=== PATIENT | female | born 1965 | race Caucasian/White ===

== ENCOUNTER 2024-04-03 11:17 | Inpatient (IN) | payer OTHER, SELFPAY ==
[2024-04-03] VITALS (17 sets, daily range): BP systolic 87–134; BP diastolic 35–106; BMI 26.2
[2024-04-03] MEDS: NSS 1000 IV ×2 (03:50→08:57)
--- NOTE | 2024-04-03 06:33 | EDRN ---
Patient provided with a drink of water otherwise resting comfortably
--- NOTE | 2024-04-03 07:43 | ED.GENMED ---
History of Present Illness
<Sarahi Wall PA-C - Last Filed: 04/03/24 12:11>
General
Chief Complaint: Alcohol Problem
Source: patient
Exam Limitations: none
Time Seen by Provider: 04/03/24 07:26
History of Present Illness
History of Present Illness:
58yoF with a history of alcohol abuse presenting via EMS for evaluation of an 'alcohol overdose.' Patient reports that she did not eat yesterday and drank alcohol at nighttime. She reports drinking a fifth of tequila. Her reportedly found
her on the floor. Patient is not sure how she got on the floor and is not sure if she fell. was unable to arouse patient so EMS was called. Patient states she feels terrible. She tried to ambulate to the bathroom earlier but was unable
to due to feeling extremely weak. She also feels short of breath which started a few hours ago. She was sober for 20+ years and started to drink heavily again about 6 months ago. On average, she is drinking a pint of tequila daily. She has
symptoms of withdrawal in the morning including vomiting and feeling shaky. She is interested in quitting but states she is the breadwinner in her family and her is currently on disability. She was admitted at [facility] in September 2023 after
a similar presentation.
Phy Exam
<Sarahi Wall PA-C - Last Filed: 04/03/24 12:11>
General Physical Exam
General Presentation: moderate distress
General age: appears older than age
General Skin: warm and dry
General Habitus: normal
General Mental: alert
General Hydration: dry mucous membranes
ENT Exam
ENT Exam: normocephalic
Eye Exam
Eye Exam: PERRL
Cardiovascular Exam
Cardiovascular Exam: regular rate/rhythm
Pulmonary Exam
Pulmonary Exam: lungs clear, no rales, no rhonchi, no wheezing and other (Tachypnea noted. Lungs CTA and oxygen saturation 100%.)
Gastrointestinal Exam
Gastrointestinal Exam: non tender, soft and non distended
Neurological Exam
Neurological Exam: alert
Arnold Coma Scale
Eye Opening: Spontaneous
Verbal Response: Oriented
Motor Response: Obeys Commands
GCS Total Score: 15
Skin Exam
Skin Exam: normal color and warm/dry
Psychiatric Exam
Psychiatric Exam: normal mood/affect
<Foreign Quintero, - Last Filed: 04/03/24 13:16>
Arnold Coma Scale
GCS Total Score: 15
Scores
<Sarahi Wall PA-C - Last Filed: 04/03/24 12:11>
Withdrawal Assessment of Alcohol
Withdrawal Assessment Completed?: Not applicable
Course
<Sarahi Wall PA-C - Last Filed: 04/03/24 12:11>
Orders/Labs/Results
Orders:
Orders
04/03/24 03:50
0.9% Sodium Chloride 1000 ml [Nss] 1,000 ml IV BOLUS
04/03/24 07:41
Electrocardiogram (*1) Urgent
Reason for Study: Shortness of Breath
EKG- Treatment ONCE
04/03/24 07:42
CT Cervical Spine W/o Iv Contr Urgent
Comment:
Reason For Exam: possible fall, ETOH
CT Head W/o Iv Contrast Urgent
Comment:
Reason For Exam: possible fall, ETOH
Lorazepam [Ativan] 1 mg IV NOW STA
04/03/24 07:43
Cardiac Monitoring- Treatment ONCE
0.9% Sodium Chloride 1000 ml [Nss] 1,000 ml IV BOLUS
CR Chest - 2 Views Urgent
Comment:
Reason For Exam: SOB
04/03/24 07:50
Alcohol Urgent
Complete Blood Count/With Diff Urgent
Comprehensive Metabolic Panel Urgent
Magnesium Urgent
Phosphorus Urgent
Troponin I Urgent
Venous Blood Gas Urgent
%Oxygen/Room Air: room air
04/03/24 08:31
Sodium Bicarbonate 50 meq IV NOW STA
04/03/24 09:00
Urinalysis Reflex To Culture Urgent
Date Specimen was Collected: 04/03/24
Time Specimen was Collected: 09:03
04/03/24 09:02
Add On- LAB Urgent
Tests Added?: phophorus
04/03/24 09:59
B-Hydroxybutyrate Urgent
04/03/24 Lunch
Regular
Dextrose 5%/0.9%Sodchl 1000 ml [D5/0.9% Sodium Chloride] 1,000 ml IV 150 mls/hr
Thiamine Injection 500 mg 0.9% Sodium Chloride 250 ml [Nss] 250 ml IV ONCE
04/03/24 10:49
Admit/Transfer Patient As Directed
Co-Sign Provider:
Level of Care: Inpatient admission
Assign to:: IMU- Intermediate Care
Physician / Group: Dav Lynne
Diagnosis: Alcohol intoxication,sev Ketoacidosis
Reason for Hospitalization: Alcohol intoxication, sev Ketoacidosis, found down on floor
Expected length of stay greater than two midnights?: Yes
ELOS- Estimated Length of Stay in days: 3
I certify the patient meets the requirements for IP care: Yes
04/03/24 10:58
PRN Pain Medication Management As Directed
May give lesser potent ordered pain med per pt: Yes
preference::
Protocol:: Medication orders for pain may be administered in a
manner that supports deferring to patient preference
when the pt is:
- Requesting an ordered lesser potent pain medication.
Least to most potent pain medications are defined
as: acetaminophen < NSAID < tramadol < opioids
(morphine, oxycodone, hydromorphone).
- Requesting a lesser dose of the same medication IF
ORDERED.
- Requesting a less intrusive route of administration
if both routes are prescribed by the provider (PO <
IV).
04/03/24 11:00
Code Status As Directed
Resuscitation Status: Full Code
04/03/24 12:04
0.9% Sodium Chloride [Nss (Preservative Free)] See Protocol IV PRN PRN
Acetaminophen [Tylenol] 650 mg PO Q4HPRN PRN
Bisacodyl [Dulcolax] 10 mg RECTAL [id number] PRN
Docusate W/Senna [Senokot-S] 1 tablet PO BIDPRN PRN
Estradiol [Estrace] 1 mg PO DAILY
Lorazepam [Ativan] 1 mg IV Q1HPRN PRN
Lorazepam [Ativan] 1 mg PO Q2HPRN PRN
Lorazepam [Ativan] 2 mg IV Q1HPRN PRN
Medroxyprogesterone [Provera] 2.5 mg PO DAILY
Ondansetron Injectable [Zofran] 4 mg IV Q6HPRN PRN
Polyethylene Glycol Powder [Miralax] 17 grams PO DAILYPRN PRN
Sodium Bicarbonate 650 mg PO NOW STA
04/03/24 12:04
Case Management Consult Once
Case Management Consult: Other
Comment: Substance abuse counseling
Activity As Directed
Activity Level: With Assistance
MSAS SCORE As Directed
MSAS Score 0-4: Repeat MSAS every 2 hours until 0-4 for three consecutive assessments, then every 4 hours x 48
hours.
MSAS Score 5-7: For MILD withdrawl symptoms. Repeat MSAS and RASS every 2 hours
MSAS Score 8-11: For MODERATE withdrawal symptoms. Repeat MSAS and RASS every 1 hour. Consider ICU or IMU
level of care.
MSAS Score > 11: For SEVERE withdrawal symptoms. Repeat MSAS and RASS every 1 hour. Notify provider, consider
ICU level of care.
MSAS Additional Instructions: If no improvement or no decrease in score from severe to moderate within 12
hours, consult psychiatry
MSAS Notify Provider: Notify provider if patient requires more than 10 mg of Lorazepam in eight hour period.
Vital Signs As Directed
Frequency: Per unit guidelines
Ot Eval And Treat Routine
US Abdomen Complete/Upper Routine
Comment:
Reason For Exam: Liver and GB
DX Deep Vein Thrombosis Video Routine
04/03/24 16:00
Sodium Bicarbonate 650 mg PO TID
Thiamine Injection 200 mg IV Q8
04/03/24 18:00
Enoxaparin Sodium [Lovenox] 40 mg SC QPM
04/04/24 06:00
Complete Blood Count/With Diff IN AM
Comprehensive Metabolic Panel IN AM
Creatine Phosphokinase IN AM
Vitamin B12 IN AM
Pt Eval And Treat IN AM
Activity Level: With Assistance
04/04/24 08:00
FOLic ACID [Folvite] 1 mg PO DAILY
FOLic ACID [Folvite] 1 mg 0.9% Sodium Chloride 50 ml [Nss] 50 ml IV DAILYPRN
04/05/24 06:00
Complete Blood Count/With Diff IN AM
Comprehensive Metabolic Panel IN AM
04/06/24 20:00
Thiamine HCl [Vitamin B1] 100 mg PO BID
Abnormal Lab Results
04/03/24 04/03/24
07:50 09:59
RBC 3.05 L 10^6/uL
(4.20-5.40)
Hct 36.7 L %
(37.0-47.0)
MCV 120.3 H fL
(81.0-99.0)
MCH 39.3 H pg
(27.0-31.0)
MCHC 32.7 L g/dL
(33.0-37.0)
RDW 17.0 H %
(11.5-14.5)
Plt Count 115 L 10^3/uL
(130-400)
MPV 10.7 H fL
(7.4-10.4)
Abs Immat Gran (auto) 0.1 H 10^3/uL
(0-0.05)
Absolute Lymphs (auto) 0.3 L 10^3/uL
(1.2-3.4)
Immature Gran % 1.9 H %
(0-0.5)
Neutrophils % 86.1 H %
(42.2-75.2)
Lymphocytes % 4.4 L %
(20.5-51.1)
VBG pH 6.98 L*
(7.32-7.43)
VBG pCO2 20 L mmHg
(35-48)
VBG HCO3 4.7 L mmol/L
(22-27)
Carbon Dioxide < 5 L* mmol/L
(22-30)
Creatinine 1.4 H mg/dL
(0.6-1.0)
Calcium 8.0 L mg/dl
(8.4-10.2)
Magnesium 2.5 H mg/dl
(1.6-2.3)
AST 100 H U/L
(14-36)
ALT 41 H U/L
(0-35)
B-Hydroxybutyrate > 9.0 H mmol/L
(0.02-0.27)
04/03/24 07:50
04/03/24 07:50
Vital Signs
Initial and Last Documented VS:
Initial Vital Signs
Temp Pulse Resp BP Pulse Ox
98.0 F 97 27 107/71 100
04/03/24 03:40 04/03/24 03:40 04/03/24 03:40 04/03/24 03:40 04/03/24 03:40
Last Documented Vital Signs
Temp Pulse Resp BP Pulse Ox
98.0 F 109 26 99/54 100
04/03/24 03:40 04/03/24 11:15 04/03/24 11:15 04/03/24 11:14 04/03/24 11:15
<Foreign Quintero, DO - Last Filed: 04/03/24 13:16>
Orders/Labs/Results
Orders:
Orders
04/03/24 03:50
0.9% Sodium Chloride 1000 ml [Nss] 1,000 ml IV BOLUS
04/03/24 07:41
Electrocardiogram (*1) Urgent
Reason for Study: Shortness of Breath
EKG- Treatment ONCE
04/03/24 07:42
CT Cervical Spine W/o Iv Contr Urgent
Comment:
Reason For Exam: possible fall, ETOH
CT Head W/o Iv Contrast Urgent
Comment:
Reason For Exam: possible fall, ETOH
Lorazepam [Ativan] 1 mg IV NOW STA
04/03/24 07:43
Cardiac Monitoring- Treatment ONCE
0.9% Sodium Chloride 1000 ml [Nss] 1,000 ml IV BOLUS
CR Chest - 2 Views Urgent
Comment:
Reason For Exam: SOB
04/03/24 07:50
Alcohol Urgent
Complete Blood Count/With Diff Urgent
Comprehensive Metabolic Panel Urgent
Magnesium Urgent
Phosphorus Urgent
Troponin I Urgent
Venous Blood Gas Urgent
%Oxygen/Room Air: room air
04/03/24 08:31
Sodium Bicarbonate 50 meq IV NOW STA
04/03/24 09:00
Urinalysis Reflex To Culture Urgent
Date Specimen was Collected: 04/03/24
Time Specimen was Collected: 09:03
04/03/24 09:02
Add On- LAB Urgent
Tests Added?: phophorus
04/03/24 09:59
B-Hydroxybutyrate Urgent
04/03/24 Lunch
Regular
Dextrose 5%/0.9%Sodchl 1000 ml [D5/0.9% Sodium Chloride] 1,000 ml IV 150 mls/hr
Thiamine Injection 500 mg 0.9% Sodium Chloride 250 ml [Nss] 250 ml IV ONCE
04/03/24 10:49
Admit/Transfer Patient As Directed
Co-Sign Provider:
Level of Care: Inpatient admission
Assign to:: IMU- Intermediate Care
Physician / Group: Dav Lynne
Diagnosis: Alcohol intoxication,sev Ketoacidosis
Reason for Hospitalization: Alcohol intoxication, sev Ketoacidosis, found down on floor
Expected length of stay greater than two midnights?: Yes
ELOS- Estimated Length of Stay in days: 3
I certify the patient meets the requirements for IP care: Yes
04/03/24 10:58
PRN Pain Medication Management As Directed
May give lesser potent ordered pain med per pt: Yes
preference::
Protocol:: Medication orders for pain may be administered in a
manner that supports deferring to patient preference
when the pt is:
- Requesting an ordered lesser potent pain medication.
Least to most potent pain medications are defined
as: acetaminophen < NSAID < tramadol < opioids
(morphine, oxycodone, hydromorphone).
- Requesting a lesser dose of the same medication IF
ORDERED.
- Requesting a less intrusive route of administration
if both routes are prescribed by the provider (PO <
IV).
04/03/24 11:00
Code Status As Directed
Resuscitation Status: Full Code
04/03/24 12:04
0.9% Sodium Chloride [Nss (Preservative Free)] See Protocol IV PRN PRN
Acetaminophen [Tylenol] 650 mg PO Q4HPRN PRN
Bisacodyl [Dulcolax] 10 mg RECTAL [id number] PRN
Docusate W/Senna [Senokot-S] 1 tablet PO BIDPRN PRN
Estradiol [Estrace] 1 mg PO DAILY
Lorazepam [Ativan] 1 mg IV Q1HPRN PRN
Lorazepam [Ativan] 1 mg PO Q2HPRN PRN
Lorazepam [Ativan] 2 mg IV Q1HPRN PRN
Medroxyprogesterone [Provera] 2.5 mg PO DAILY
Ondansetron Injectable [Zofran] 4 mg IV Q6HPRN PRN
Polyethylene Glycol Powder [Miralax] 17 grams PO DAILYPRN PRN
Sodium Bicarbonate 650 mg PO NOW STA
04/03/24 12:04
Case Management Consult Once
Case Management Consult: Other
Comment: Substance abuse counseling
Activity As Directed
Activity Level: With Assistance
MSAS SCORE As Directed
MSAS Score 0-4: Repeat MSAS every 2 hours until 0-4 for three consecutive assessments, then every 4 hours x 48
hours.
MSAS Score 5-7: For MILD withdrawl symptoms. Repeat MSAS and RASS every 2 hours
MSAS Score 8-11: For MODERATE withdrawal symptoms. Repeat MSAS and RASS every 1 hour. Consider ICU or IMU
level of care.
MSAS Score > 11: For SEVERE withdrawal symptoms. Repeat MSAS and RASS every 1 hour. Notify provider, consider
ICU level of care.
MSAS Additional Instructions: If no improvement or no decrease in score from severe to moderate within 12
hours, consult psychiatry
MSAS Notify Provider: Notify provider if patient requires more than 10 mg of Lorazepam in eight hour period.
Vital Signs As Directed
Frequency: Per unit guidelines
Ot Eval And Treat Routine
US Abdomen Complete/Upper Routine
Comment:
Reason For Exam: Liver and GB
DX Deep Vein Thrombosis Video Routine
04/03/24 16:00
Sodium Bicarbonate 650 mg PO TID
Thiamine Injection 200 mg IV Q8
04/03/24 18:00
Enoxaparin Sodium [Lovenox] 40 mg SC QPM
04/04/24 06:00
Complete Blood Count/With Diff IN AM
Comprehensive Metabolic Panel IN AM
Creatine Phosphokinase IN AM
Vitamin B12 IN AM
Pt Eval And Treat IN AM
Activity Level: With Assistance
04/04/24 08:00
FOLic ACID [Folvite] 1 mg PO DAILY
FOLic ACID [Folvite] 1 mg 0.9% Sodium Chloride 50 ml [Nss] 50 ml IV DAILYPRN
04/05/24 06:00
Complete Blood Count/With Diff IN AM
Comprehensive Metabolic Panel IN AM
04/06/24 20:00
Thiamine HCl [Vitamin B1] 100 mg PO BID
Abnormal Lab Results
04/03/24 04/03/24
07:50 09:59
RBC 3.05 L 10^6/uL
(4.20-5.40)
Hct 36.7 L %
(37.0-47.0)
MCV 120.3 H fL
(81.0-99.0)
MCH 39.3 H pg
(27.0-31.0)
MCHC 32.7 L g/dL
(33.0-37.0)
RDW 17.0 H %
(11.5-14.5)
Plt Count 115 L 10^3/uL
(130-400)
MPV 10.7 H fL
(7.4-10.4)
Abs Immat Gran (auto) 0.1 H 10^3/uL
(0-0.05)
Absolute Lymphs (auto) 0.3 L 10^3/uL
(1.2-3.4)
Immature Gran % 1.9 H %
(0-0.5)
Neutrophils % 86.1 H %
(42.2-75.2)
Lymphocytes % 4.4 L %
(20.5-51.1)
VBG pH 6.98 L*
(7.32-7.43)
VBG pCO2 20 L mmHg
(35-48)
VBG HCO3 4.7 L mmol/L
(22-27)
Carbon Dioxide < 5 L* mmol/L
(22-30)
Creatinine 1.4 H mg/dL
(0.6-1.0)
Calcium 8.0 L mg/dl
(8.4-10.2)
Magnesium 2.5 H mg/dl
(1.6-2.3)
AST 100 H U/L
(14-36)
ALT 41 H U/L
(0-35)
B-Hydroxybutyrate > 9.0 H mmol/L
(0.02-0.27)
04/03/24 07:50
04/03/24 07:50
Vital Signs
Initial and Last Documented VS:
Initial Vital Signs
Temp Pulse Resp BP Pulse Ox
98.0 F 97 27 107/71 100
04/03/24 03:40 04/03/24 03:40 04/03/24 03:40 04/03/24 03:40 04/03/24 03:40
Last Documented Vital Signs
Temp Pulse Resp BP Pulse Ox
98.0 F 109 26 99/54 100
04/03/24 03:40 04/03/24 11:15 04/03/24 11:15 04/03/24 11:14 04/03/24 11:15
Hermanlt;Sarahi Wall PA-C - Last Filed: 04/03/24 12:11>
MDM/Problems Addressed
Differential Diagnosis Includes:
58yoF here after an 'alcohol overdose.' found patient on floor this morning and she was unable to be aroused so EMS was called. Patient admits to not eating much the past few days. She is ill appearing and tachypneic on exam. RR 30, HR 113.
Remainder of vitals are stable. Differential diagnosis includes but is not limited to: alcohol intoxication, electrolyte abnormality, alcoholic ketoacidosis, starvation ketosis, dehydration
Initial ED plan: Check cardiac labs, magnesium, ETOH, VBG, EKG, CXR, and CT head/cervical spine. IV fluid bolus ordered prior to initial exam. Will order 2nd NS bolus and 1mg IV Ativan for withdrawal symptoms.
<Sarahi Wall PA-C - Last Filed: 04/03/24 12:11>
*EKG
Interpreted by ED Provider?: Yes
EKG Intrepretation Date: 04/03/24
Heart Rate: 60
Rate: normal
Rhythm: sinus
[place]: normal axis
Interval: long QT (519)
Ischemia: no ischemia
*Critical Care Note
Total Time (30-74mins, 75-104mins- exclusive of procedures): 35
<Foreign Quintero DO - Last Filed: 04/03/24 13:16>
*Critical Care Note
Total Time (30-74mins, 75-104mins- exclusive of procedures): 40
comment:
Critical care statement: A total of 40 minutes of critical care time was provided for this patient. This includes management of unstable vital signs, evaluation of the patient at bedside, reviewing the patient's pertinent medical records, discussion
with consultants, review of old EKGs and review of pertinent medical records. This time with separate from time utilized to perform the aforementioned documented procedures
<Sarahi Wall PA-C - Last Filed: 04/03/24 12:11>
Update Note
Update Note:
Severe metabolic acidosis noted with venous pH of 6.98 and bicarb less than 5. Glucose within normal limits. Suspect alcoholic ketoacidosis vs. starvation ketosis. Beta hydroxybutyrate added. IV thiamine ordered and patient was initiated on D5
normal saline maintenance fluids. Patient admitted for further management.
ED Attending Note
<Sarahi Wall PA-C - Last Filed: 04/03/24 12:11>
-
Portions of this chart may have been created with voice recognition software.� Occasional wrong word or��sound alike� substitutions may have occurred due to the inherent limitations of voice recognition software.
<Foreign Quintero DO - Last Filed: 04/03/24 13:16>
ED Attending Note
Patient seen and examined by attending physician: Yes
ED Attending Note:
I have reviewed and agree with history treatment plan by Sarahi Wall PA-C. My exam reveals 58-year-old female with mild tachypnea. Abdomen exam benign. Ecchymosis right infraorbital region. No tenderness to palpation. Extraocular motions
intact. Lungs clear. Suspect alcoholic ketoacidosis. IV fluids given. IV bicarbonate given. Will likely admit to ICU.
Discharge Plan
Departure
Patient Disposition: Admit
Date of Disposition: 04/03/24
Time of Disposition: 09:10
Presentation/result/management discussed w/ accepting MD/DO: Hospitalist
Discharge Problem:
High anion gap metabolic acidosis, Alcohol withdrawal
Interventions
Interventions:
*Risk Screen - Suicide Last Done: 04/03/24 03:40
*General Assessment Last Done: 04/03/24 03:40
*Neglect/Abuse Screening Last Done: 04/03/24 03:40
ED- Fall Risk Assessment Last Done: 04/03/24 06:34
*ED COVID-19 Vaccine History Last Done: 04/03/24 03:40
ED- Neurological Assessment Last Done: 04/03/24 06:34
ED-Psychological Assessment Last Done: 04/03/24 06:34
[2024-04-03] MEDS: ATIVAN 1 MG IV ×4 (07:58→16:55)
[2024-04-03 08:09] LABS: % Basophils 0.3 % (0-2); % Immature Granulocytes 1.9 % (0-0.5); % Lymphocytes 4.4 % (20.5-51.1); % Monocytes 7.3 % (1.7-9.3); % Neutrophils 86.1 % (42.2-75.2); Absolute Immature Granulocytes 0.1 10^3/uL (0-0.05); Absolute Lymphocytes 0.3 10^3/uL (1.2-3.4); Absolute Monocytes 0.5 10^3/uL (0.1-0.6); Hematocrit 36.7 % (37.0-47.0); Mean Corp Hgb Conc. 32.7 g/dL (33.0-37.0); Mean Corpuscular Hgb 39.3 pg (27.0-31.0); Mean Corpuscular Volume 120.3 fL (81.0-99.0); Mean Platelet Volume 10.7 fL (7.4-10.4); Nucleated Red Blood Cells % 2.1 %; Platelet Count 115 10^3/uL (130-400); Red Blood Cell Count 3.05 10^6/uL (4.20-5.40); Venous Blood Gas B.E. -25.5 mmol/L (-4 to +4); Venous Blood Gas HCO3 4.7 mmol/L (22-27); Venous Blood Gas O2 Sat % 71.2 %; Venous Blood Gas pCO2 20 mmHg (35-48); Venous Blood Gas pO2 45 mmHg (30-50)
[2024-04-03 08:11] LABS: Venous Blood Gas pH 6.98 (7.32-7.43)
[2024-04-03 08:39] LABS: Troponin I 0.025 ng/ml
[2024-04-03] MEDS: SODIUM BICARBONATE 50 MEQ IV (08:51)
[2024-04-03 08:58] LABS: ALT (SGPT) 41 U/L (0-35); AST (SGOT) 100 U/L (14-36); Albumin 4.4 g/dl (3.5-5.0); Alcohol 126 mg/dl; Alkaline Phosphatase 78 U/L (38-126); Blood Urea Nitrogen 10 mg/dl (7-17); Carbon Dioxide < 5 mmol/L (22-30); Chloride 104 mmol/L (98-107); Estimated Creatinine Clearance 34 ml/min; Glucose 70 mg/dl (70-99); Magnesium 2.5 mg/dl (1.6-2.3); Potassium 4.7 mmol/L (3.5-5.1); Sodium 136 mmol/L (135-145); Total Bilirubin 0.8 mg/dl (0.2-1.3); Total Protein 6.8 g/dl (6.3-8.2); eGFR 43.07
[2024-04-03 10:01] LABS: Phosphorus 4.2 mg/dl (2.5-4.5)
[2024-04-03] MEDS: THIAMINE INJECTION 255 MG IV (10:05)
--- NOTE | 2024-04-03 11:05 | HPS.HSE ---
Addendum entered and electronically signed by Dav Lynne MD 04/03/24 15:45:
Patient reported to be very agitated and MSAS is 11-12
Patient going through early withdrawal, will add phenobarbital IV dosing for alc withdrawal.
Original Note:
Family Physician
-
Family Physician: James Saenz
Chief Complaint
-
Found down, intoxicated
History of Present Illness
Patient is 58-year-old female with past medical history of alcohol use disorder, anxiety was brought to ER by patient's spouse after patient was found down. During my visit in ER patient was intoxicated and able to provide some history. According
to patient she has been sober for 20 years and for last 6 months due to socioeconomic stressors patient has been drinking again. Patient is apparently breadwinner for the home with spouse being disabled. Yesterday patient was drinking tequila and
may have finished 1/5 or quarter bottle of tequila without eating anything for the whole day. Later in evening at some point patient passed out versus fell and was found on the ground by spouse. No reported telltale sign of seizure activity,
patient denies of having previous history of seizures. Patient does have bruises on face and in leg and and reports to have fell in the past .
Patient not endorsing any complaints of chest pain/shortness of breath/abdominal pain/nausea/vomiting/fever/diarrhea/dysuria.
Medical History
Past Medical History
Past Medical History: Reports Other
Additional Past Medical History:
Anxiety
Past Surgical History: Reports None
Social History
Tobacco: Non-smoker
Alcohol: Daily
Drug: Marijuana
Personal:
Living: With Family
Employment: Employed
Family History
Family History: Not pertinent
Allergies / Home Medications
Allergies reflects when Allergies were last updated in [facility].
Home Medications with original date entered in [facility]
Allergy/Medication List:
Allergies
Allergy/AdvReac Type Severity Reaction Status Date / Time
No Known Allergies Allergy Unverified 04/03/24 03:49
Home Medications
clonazepam 1 mg tablet 1 mg PO DAILYPRN PRN anxiety 04/03/24
estradiol 1 mg tablet 1 mg PO DAILY Hormonal Agent 04/03/24
medroxyprogesterone 2.5 mg tablet 2.5 mg PO DAILY Hormonal Agent 04/03/24
Review of Systems
-
A 12 point ROS was completed and negative except as noted: Yes
Physical Exam
Vital Signs
Vital Signs
Temp Pulse Resp BP Pulse Ox
98.0 F 113 30 106/61 99
04/03/24 03:40 04/03/24 06:45 04/03/24 06:45 04/03/24 06:00 04/03/24 06:00
Physical Exam
General: No Apparent Distress
HEENT: NormoCephalic, Moist mucous membranes and Atraumatic
Respiratory: Clear
Cardiac: S1/S2 and Regular Rhythm; No Murmur or Rub
GI: Soft, Non Tender and Non Distended; No Organomegaly
Musculoskeletal: No Clubbing, No Cyanosis and No Edema
Skin: No Rash
Neuro: Awake, Alert, Oriented and Nonfocal/grossly intact
Laboratory Results
-
04/03/24 07:50
04/03/24 07:50
Laboratory Results
Total Bilirubin 0.8 mg/dl (0.2-1.3) 04/03/24 07:50
AST 100 U/L (14-36) H 04/03/24 07:50
ALT 41 U/L (0-35) H 04/03/24 07:50
Alkaline Phosphatase 78 U/L (38-126) 04/03/24 07:50
Troponin I 0.025 ng/ml 04/03/24 07:50
Impression/Plan
-
1. Alcohol use disorder
Alcohol intoxication
-Patient was brought in by family mother after was found down on the floor
-No reported telltale signs of any seizures
-CT head and CT neck did not show any acute abnormality
-Alcohol level of 125 admit
-Maintain on alcohol withdrawal protocol, patient likely to show sign early as tomorrow.
-Patient interested in alcohol cessation as has been sober for 20 years in the past. Will call [facility].
2. Anion gap metabolic acidosis
Alcohol use related ketoacidosis
-Likely from alcohol use/starvation ketoacidosis, BHB > 9
-Patient is currently on D5 NS
-Giving oral bicarb supplements as well
-Encourage oral intake as possible
3. Anxiety disorder
-hold klonopin for now
4. Macrocytic anemia
-Check B12 and folate level
5. Acute transaminitis
-Suspected component with alcohol use related
-No previous liver/gallbladder imaging, ultrasound ordered
DVT prophylaxis -Lovenox
Full code
Total time spent : 78 mins
I personally saw and examined the patient.
I have reviewed all diagnostic interpretations and treatment plans as written.
Time includes patient management by me, time spent at the patients bedside, time to review lab and imaging results, discussing patient care, documentation in the medical record, and time spent with the family or caregiver and discussing care plan
with RN/Consultants.
[2024-04-03] MEDS: D5/0.9% SODIUM CHLORIDE 1000 IV ×2 (11:17→18:05)
[2024-04-03 11:24] LABS: B-Hydroxybutyrate > 9.0 mmol/L (0.02-0.27)
[2024-04-03] MEDS: PROVERA 2.5 MG PO (13:18)
[2024-04-03] MEDS: ESTRACE 1 MG PO (13:19)
--- NOTE | 2024-04-03 14:35 | PTCARENOTE ---
Pt from slurred garbled speech. Talking about her alcohol addiction. She states she had this problem 20 years ago but has been sober. She said her cat and thats when she started drinking. Her is disabled and has addictions to drugs
and alcohol also according to pt. Pt stated she works from home, and in Dec had a DUI. She also states she is tired of living this way. Pt is disoriented and is hallucinating at times. She is on a bed alarm and on MSAS which was 11 and given 1 mg
Ativan as ordered.
[2024-04-03] MEDS: ATIVAN 2 MG IV ×5 (15:29→23:04)
[2024-04-03] MEDS: THIAMINE INJECTION 200 MG IV ×2 (15:30→23:04)
[2024-04-03] MEDS: SODIUM BICARBONATE PO (15:33)
--- NOTE | 2024-04-03 15:34 | PTCARENOTE ---
Pt continues to be very restless, disoriented ,trying to get OOB, taking off gown and picking at everything.
--- NOTE | 2024-04-03 16:17 | CM ---
Patient with Hx alcohol use disorder, anxiety disorder. Room air. Receiving IVF, IV Phenobarb, IV Folic Acid, IV Thiamine, IV Ativan prn. Per nurses notes; confused, disoriented, hallucinating at times. MSAS 12 at 15:00 hrs.
Spoke with patient's nurse Brad; patient remains restless and disoriented, and she is working on maintaining a quiet environment to get her to settle down. Nurse requested CM hold off on seeing the patient.
Phone call to patient's Naveen; left message requesting callback.
CM Consult noted for Substance Abuse - deferred at this time due to above.
Plan Assessment when able to speak with patient or .
[2024-04-03] MEDS: PHENOBARBITAL 104 MG IV (16:22)
[2024-04-03] MEDS: LOVENOX 40 MG SC (16:23)
[2024-04-03] MEDS: NSS (PRESERVATIVE FREE) 10 ML IV (19:23)
[2024-04-03 19:58] LABS: Urine Albumin 3+ (Neg - Trace); Urine Bilirubin Negative (Negative); Urine Color Yellow; Urine Glucose Negative (Negative); Urine Ketone 3+ (Negative); Urine Leukocyte Negative (Negative); Urine Nitrite Negative (Negative); Urine Occult Blood 4+ (Negative); Urine Specific Gravity 1.015 (<1.030); Urine Urobilinogen Negative (Neg - 1+)
[2024-04-03 20:03] LABS: Urine Character Clear (Clear)
[2024-04-03 20:21] LABS: Urine Bacteria Few (Negative); Urine Hyaline Cast 0-2 /LPF (0-2)
[2024-04-03] MEDS: PHENOBARBITAL 97.5 MG IV (21:23)
[2024-04-03] MEDS: SODIUM BICARBONATE 650 MG PO (21:24)
[2024-04-04] VITALS (15 sets, daily range): BP systolic 92–142; BP diastolic 55–108; PULSE 88–149
[2024-04-04] MEDS: D5/0.9% SODIUM CHLORIDE 1000 IV ×2 (00:06→06:30)
--- NOTE | 2024-04-04 00:15 | PTCARENOTE ---
assumed care of patient, pt restless, climbing OOB, disoriented, hallucinating, MSAS-12, bed alarm on. pt stating she has to urinate but unable to. bladder scanned for 810ml. notified covering EXHIBIT TECHNICIAN. orders entered. pt straight cath'd at start of
shift and urine specimen sent down. pt was able to take one pill with water without issues. IV fluids infusing. pt medicated with IV ativan as needed. care ongoing.
[2024-04-04] MEDS: ATIVAN 1 MG IV ×3 (01:08→23:44)
[2024-04-04] MEDS: ATIVAN 2 MG IV ×2 (04:24→09:33)
[2024-04-04 05:19] LABS: % Basophils 0.2 % (0-2); % Eosinophils 0.2 % (0-6); % Immature Granulocytes 0.6 % (0-0.5); % Lymphocytes 2.9 % (20.5-51.1); % Monocytes 7.1 % (1.7-9.3); Absolute Lymphocytes 0.2 10^3/uL (1.2-3.4); Absolute Monocytes 0.4 10^3/uL (0.1-0.6); Absolute Neutrophils 4.6 10^3/uL (1.4-6.5); Hematocrit 25.8 % (37.0-47.0); Mean Corp Hgb Conc. 34.9 g/dL (33.0-37.0); Mean Corpuscular Volume 108.9 fL (81.0-99.0); Mean Platelet Volume 10.3 fL (7.4-10.4); Nucleated Red Blood Cells % 0.4 %; Platelet Count 102 10^3/uL (130-400); Red Blood Cell Count 2.37 10^6/uL (4.20-5.40); White Blood Cell Count 5.2 10^3/uL (4.8-10.8)
[2024-04-04 06:29] LABS: ALT (SGPT) 31 U/L (0-35); AST (SGOT) 63 U/L (14-36); Albumin 3.1 g/dl (3.5-5.0); Alkaline Phosphatase 70 U/L (38-126); Blood Urea Nitrogen 18 mg/dl (7-17); Calcium 8.2 mg/dl (8.4-10.2); Carbon Dioxide 7 mmol/L (22-30); Chloride 115 mmol/L (98-107); Creatine Phosphokinase 299 U/L (30-135); Estimated Creatinine Clearance 36 ml/min; Glucose 236 mg/dl (70-99); Potassium 3.4 mmol/L (3.5-5.1); Sodium 139 mmol/L (135-145); Total Protein 5.7 g/dl (6.3-8.2); eGFR 47.08
[2024-04-04 06:31] LABS: Vitamin B12 563 pg/ml (239-931)
[2024-04-04] MEDS: PHENOBARBITAL 97.5 MG IV ×3 (09:17→22:45)
[2024-04-04] MEDS: THIAMINE INJECTION 200 MG IV ×3 (09:18→23:44)
[2024-04-04] MEDS: NSS (PRESERVATIVE FREE) 1 ML IV (09:33)
[2024-04-04] MEDS: FOLVITE 1 MG PO (09:48)
[2024-04-04] MEDS: ESTRACE 1 MG PO (09:48)
[2024-04-04] MEDS: PROVERA 2.5 MG PO (09:49)
[2024-04-04] MEDS: SODIUM BICARBONATE 650 MG PO (09:49)
[2024-04-04] MEDS: SODIUM BICARBONATE 1075 MEQ IV (10:37)
--- NOTE | 2024-04-04 12:31 | CM ---
Patient with Hx alcohol use disorder, anxiety disorder. Room air. Febrile today. Receiving IVF w Bicarb, IV Phenobarb, IV Ativan prn. MSAS 4-12.
Patient sleeping and asked by staff not to disturb patient who remains drowsy and restless.
Phone call to patient's Naveen; left message requesting callback.
CM Consult noted for Substance Abuse - deferred at this time due to above.
Plan Assessment when able to speak with patient or .
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
--- NOTE | 2024-04-04 15:05 | W.PN.HOSP.TC ---
Today's Communication/Plan
-
see note
Assessment / Plan
Assessment / Plan
1. Alcohol use disorder
Alcohol intoxication
-Patient was brought in by family mother after was found down on the floor
-No reported telltale signs of any seizures
-CT head and CT neck did not show any acute abnormality
-Alcohol level of 125 admit
-Patient interested in alcohol cessation as has been sober for 20 years in the past. Will call [facility].
-Started on phenobarb protocol/maintain on MSAS-ativan
2. Anion gap metabolic acidosis
Alcohol use related ketoacidosis
-Likely from alcohol use/starvation ketoacidosis, BHB > 9
-started on IV bicarb drip
-Giving oral bicarb supplements as well
-Encourage oral intake as possible
3. Anxiety disorder
-hold klonopin for now
4. Macrocytic anemia
-B12 normal
5. Acute transaminitis
-Suspected component with alcohol use related
-No previous liver/gallbladder imaging, ultrasound ordered
6. Fever episode
-check covid/flu
-Could be related to alcohol withdrawal as well
-No other clear signs of ongoing infection, monitor off antibiotic
DVT prophylaxis -Lovenox
Full code
Total time spent ; 53 mins
Anticipated Discharge: 24 - 48 hours
Subjective/Interval History
-
Date of Service: April 04, 2024
Patient remains delirious/confused
no other acute events
Objective Data
-
Labs:
Laboratory Results
04/04/24 04/04/24
04:47 15:04
WBC 5.2
Hgb 9.0 L D
Hct 25.8 L
Plt Count 102 L
Sodium 139 Pending
Potassium 3.4 L D Pending
Chloride 115 H Pending
Carbon Dioxide 7 L* Pending
BUN 18 H Pending
Creatinine 1.3 H Pending
Glucose 236 H Pending
Calcium 8.2 L Pending
Total Bilirubin 1.0
AST 63 H
ALT 31
Alkaline Phosphatase 70
Vital Signs:
Vital Signs
Temp Pulse Resp BP Pulse Ox
100.7 F H 91 21 132/71 99
04/04/24 11:15 04/04/24 14:00 04/04/24 14:00 04/04/24 14:00 04/04/24 08:00
I&O
04/03/24 04/04/24 04/05/24
06:59 06:59 06:59
Intake Total 950 / 950
Output Total 1125 / 1125
Balance -175 / -175
Review of Systems
-
Respiratory: Reports No Symptoms
Cardiac: Reports No Symptoms
Abdomen/GI: Reports No Symptoms
Physical Exam
-
General: No Apparent Distress and Comfortable
HEENT: Negative Oxygen
Respiratory: Clear to Auscultation
Cardiac: Regular Rhythm and S1/S2; Negative Murmur or Rub
GI: Soft, Nontender and Nondistended
Musculoskeletal: No Edema
Neuro: Awake and Sedated; Negative Alert
Psych: Calm
[2024-04-04 16:51] LABS: COVID-19 Antigen Negative (Negative)
[2024-04-04 17:19] LABS: Blood Urea Nitrogen 19 mg/dl (7-17); Calcium 8.8 mg/dl (8.4-10.2); Carbon Dioxide 17 mmol/L (22-30); Chloride 116 mmol/L (98-107); Estimated Creatinine Clearance 39 ml/min; Glucose 116 mg/dl (70-99); Potassium 2.5 mmol/L (3.5-5.1); Sodium 142 mmol/L (135-145); eGFR 51.82
[2024-04-04] MEDS: LOVENOX 40 MG SC (17:25)
[2024-04-04] MEDS: KCL 270 MEQ IV (17:48)
[2024-04-04] MEDS: KCL ELIXIR 40 MEQ PO (17:48)
--- NOTE | 2024-04-04 19:29 | PTCARENOTE ---
Rec'd pt this AM. When awake pt is very confused, hallucinating and tremulous with MSAS 10-12. Following treatment, pt is asleep and symptoms greatly improve. Potassium 2.5 MD judy notified. Replacement ordered and administered. Pt is able to
drink fluids and ate one meal today consisting of soft foods. vital signs stable.
[2024-04-04] MEDS: ATIVAN 1 MG PO (21:07)
[2024-04-04] MEDS: NSS (PRESERVATIVE FREE) 0.5 ML IV (23:45)
[2024-04-05] VITALS (12 sets, daily range): BP systolic 110–138; BP diastolic 69–99
[2024-04-05] MEDS: SODIUM BICARBONATE 1075 MEQ IV (02:02)
--- NOTE | 2024-04-05 03:45 | PTCARENOTE ---
Pt is oriented to person but disoriented to time and place. Pt very confused and restless at change of shift. Pt having hallucinations and very tremulous MSAS 8 refer to worklist and MAR. Pt tearful at times stating that she is embarrassed. Pt
states this is not the first time she has gone through withdrawal. Gordon is draining clear yellow urine. NS to sinus tach on tele. 98% on room air. Pt finished potassium gtt and has IV fluids running. Pt complained of slight stinging at the IV site
but has since improved. Pt does not ring call davis. Call davis is within reach, checking on patient frequently.
[2024-04-05 04:54] LABS: % Basophils 0.4 % (0-2); % Immature Granulocytes 0.4 % (0-0.5); % Lymphocytes 16.1 % (20.5-51.1); % Monocytes 5.1 % (1.7-9.3); Absolute Eosinophils 0.1 10^3/uL (0-0.7); Absolute Lymphocytes 0.8 10^3/uL (1.2-3.4); Absolute Monocytes 0.3 10^3/uL (0.1-0.6); Absolute Neutrophils 3.9 10^3/uL (1.4-6.5); Hematocrit 29.4 % (37.0-47.0); Hemoglobin 10.7 g/dL (12.0-16.0); Mean Corp Hgb Conc. 36.4 g/dL (33.0-37.0); Mean Corpuscular Hgb 38.9 pg (27.0-31.0); Mean Corpuscular Volume 106.9 fL (81.0-99.0); Mean Platelet Volume 10.7 fL (7.4-10.4); Nucleated Red Blood Cells % 0 %; Platelet Count 116 10^3/uL (130-400); Red Blood Cell Count 2.75 10^6/uL (4.20-5.40); Red Cell Dist. Width 16.1 % (11.5-14.5); White Blood Cell Count 5.1 10^3/uL (4.8-10.8)
[2024-04-05 05:28] LABS: ALT (SGPT) 35 U/L (0-35); AST (SGOT) 77 U/L (14-36); Albumin 3.3 g/dl (3.5-5.0); Alkaline Phosphatase 92 U/L (38-126); Blood Urea Nitrogen 18 mg/dl (7-17); Calcium 9.1 mg/dl (8.4-10.2); Carbon Dioxide 21 mmol/L (22-30); Chloride 111 mmol/L (98-107); Estimated Creatinine Clearance 47 ml/min; Glucose 88 mg/dl (70-99); Potassium 3.1 mmol/L (3.5-5.1); Sodium 141 mmol/L (135-145); Total Bilirubin 1.6 mg/dl (0.2-1.3); Total Protein 5.7 g/dl (6.3-8.2); eGFR > 60.00
[2024-04-05] MEDS: KCL 40 MEQ PO (07:49)
[2024-04-05] MEDS: THIAMINE INJECTION 200 MG IV ×2 (07:49→15:33)
[2024-04-05] MEDS: PROVERA 2.5 MG PO (07:50)
[2024-04-05] MEDS: ESTRACE 1 MG PO (07:50)
[2024-04-05] MEDS: FOLVITE 1 MG PO (07:51)
[2024-04-05] MEDS: PHENOBARBITAL 97.5 MG IV ×2 (07:51→15:33)
[2024-04-05] MEDS: ATIVAN 1 MG PO (08:34)
[2024-04-05] MEDS: SODIUM BICARBONATE IV (10:16)
--- NOTE | 2024-04-05 12:14 | PTCARENOTE ---
P)t ate scrabled eggs and drank coffee
--- NOTE | 2024-04-05 12:14 | CM ---
Addendum entered by Tamiko Felix RN 04/05/24 16:10:
Phone message from SHERI Jang; he met with the patient and gave her outpatient resources. He will follow up with her on Sunday 04/09.
Plan follow patient's progress with PT.
Plan SNF for rehab vs home with [facility].
Original Note:
Patient with Hx alcohol use disorder, anxiety disorder. Room air. Receiving IV Phenobarb, IV Ativan prn. More alert/oriented today. MSAS. PT/OT recommend skilled rehab.
Met with patient and offered SHERI for alcohol use resources and she agreed. Patient was tearful stating 'I was sober for 20 years'.
Spoke with SHERI Jang; he will meet with the patient today.
Plan follow patient's progress with PT.
Plan follow up after seen by SHERI.
--- NOTE | 2024-04-05 14:35 | W.PN.HOSP.TC ---
Today's Communication/Plan
-
possible tele transfer if stable
pt/ot
continue phenobarb protocol
Assessment / Plan
Assessment / Plan
1. Alcohol use disorder
Alcohol intoxication
-Patient was brought in by family mother after was found down on the floor
-No reported telltale signs of any seizures
-CT head and CT neck did not show any acute abnormality
-Alcohol level of 125 admit
-Patient interested in alcohol cessation as has been sober for 20 years in the past. Will call [facility].
-Started on phenobarb protocol/maintain on MSAS-ativan
2. Anion gap metabolic acidosis - Improving
Alcohol use related ketoacidosis
-Likely from alcohol use/starvation ketoacidosis, BHB > 9
-finish bicarb drip
-Encourage oral intake as possible
3. Anxiety disorder
-hold klonopin for now
4. Macrocytic anemia
-B12 normal
5. Acute transaminitis
-Suspected component with alcohol use related
-No previous liver/gallbladder imaging, ultrasound ordered
6. Fever episode
-covid/flu neg
-Could be related to alcohol withdrawal as well
-No other clear signs of ongoing infection, monitor off antibiotic
7. Hypokalemia
-replaced prn
DVT prophylaxis -Lovenox
Full code
Anticipated Discharge: 24 - 48 hours
Subjective/Interval History
-
Date of Service: April 05, 2024
more awake
remains confused at times
no acute events reported
Objective Data
-
Labs:
Laboratory Results
04/05/24
04:44
WBC 5.1
Hgb 10.7 L
Hct 29.4 L
Plt Count 116 L
Sodium 141
Potassium 3.1 L
Chloride 111 H
Carbon Dioxide 21 L
BUN 18 H
Creatinine 1.0
Glucose 88
Calcium 9.1
Total Bilirubin 1.6 H
AST 77 H
ALT 35
Alkaline Phosphatase 92
Vital Signs:
Vital Signs
Temp Pulse Resp BP Pulse Ox
99.2 F 93 19 124/89 98
04/05/24 11:22 04/05/24 10:00 04/05/24 12:00 04/05/24 12:00 04/05/24 08:00
I&O
04/04/24 04/05/24 04/06/24
06:59 06:59 06:59
Intake Total 950 / 950 1970 / 1970 600 / 600
Output Total 1125 / 1125 2100 / 2100
Balance -175 / -175 -130 / -130 600 / 600
Review of Systems
-
Respiratory: Reports No Symptoms
Cardiac: Reports No Symptoms
Abdomen/GI: Reports No Symptoms
Physical Exam
-
General: No Apparent Distress and Comfortable
HEENT: Negative Oxygen
Respiratory: Clear to Auscultation
Cardiac: Regular Rhythm and S1/S2; Negative Murmur or Rub
GI: Soft, Nontender and Nondistended
Musculoskeletal: No Edema
Neuro: Awake and Alert; Negative Oriented
Psych: Calm
--- NOTE | 2024-04-05 15:38 | PN.CDI ---
CDI
- -
CDI:
Physician Documentation Request
Admit Date: 04/03/24 11:17
Dear Doctor Maged,
Patient presented to ED after being found on floor by . EMS was called. ED record states 'he was sober for 20+ years and started to drink heavily again about 6 months ago. On average, she is drinking a pint of tequila daily. She has
symptoms of withdrawal in the morning including vomiting and feeling shaky.'
04/03 nursing note states 'Pt continues to be very restless, disoriented ,trying to get OOB, taking off gown and picking at everything.'
04/04 '... pt restless, climbing OOB, disoriented, hallucinating' and 'When awake pt is very confused, hallucinating and tremulous with MSAS 10-12'
If possible, please provide further specificity as outlined below:
1. Please specify the pattern of use, include all that apply:
- Use, with or without abuse and/or dependence
- Abuse with or without dependence
- Dependence
2. Please identify any associated manifestations
- Intoxication: with or without delirium, with or without perceptual disturbance
- With substance induced psychotic disorder: with delusions and/or hallucinations
- Withdrawal
- With substance induced sleep disorder and/or sexual dysfunction
- Other, please specify
Use of terms such as suspected, likely, concern for, or probable (associated with a specific diagnosis that is being evaluated, monitored, or treated as if it exists) are acceptable and can be coded in the inpatient setting, when documented at the
time of discharge.
Thank you,
Roma Sahu RN BSN
CDI Specialist
tiger text
Please use your independent medical judgment in providing your response.
[2024-04-05] MEDS: LOVENOX 40 MG SC (17:42)
[2024-04-05 21:32] LABS: Glucose - Point of Care 99 mg/dl (70-99)
[2024-04-05] MEDS: LUMINAL 64.8 MG PO (22:01)
[2024-04-06] VITALS (10 sets, daily range): BP systolic 75–138; BP diastolic 54–87
[2024-04-06] MEDS: THIAMINE INJECTION 200 MG IV ×2 (00:05→08:19)
--- NOTE | 2024-04-06 02:16 | PTCARENOTE ---
Patient has improvement in overall orientation, pt oriented to self and place but not to time. Pt is less restless and anxious. Pt tearful at times. Spoke to patient and pt states that she has never been to rehab for alcohol misuse but has been
considering it. Tremors have improved MSAS scores not requiring ativan at this time, refer to worklist. Pt states she feels 'groggy'. NSR on tele. Gordon draining clear yellow urine. Pt appears to be resting comfortably in bed. Call davis within
reach.
[2024-04-06 04:10] LABS: Hematocrit 28.3 % (37.0-47.0); Hemoglobin 10.3 g/dL (12.0-16.0); Mean Corp Hgb Conc. 36.4 g/dL (33.0-37.0); Mean Corpuscular Hgb 38.7 pg (27.0-31.0); Mean Corpuscular Volume 106.4 fL (81.0-99.0); Mean Platelet Volume 11.2 fL (7.4-10.4); Platelet Count 106 10^3/uL (130-400); Red Blood Cell Count 2.66 10^6/uL (4.20-5.40); Red Cell Dist. Width 15.5 % (11.5-14.5); White Blood Cell Count 4.2 10^3/uL (4.8-10.8)
[2024-04-06 04:35] LABS: Blood Urea Nitrogen 16 mg/dl (7-17); Calcium 8.7 mg/dl (8.4-10.2); Carbon Dioxide 25 mmol/L (22-30); Chloride 99 mmol/L (98-107); Estimated Creatinine Clearance 53 ml/min; Glucose 94 mg/dl (70-99); Potassium 2.8 mmol/L (3.5-5.1); Sodium 133 mmol/L (135-145); eGFR > 60.00
[2024-04-06] MEDS: KCL 40 MEQ PO ×2 (05:33→11:06)
[2024-04-06] MEDS: FOLVITE 1 MG PO (08:17)
[2024-04-06] MEDS: LUMINAL 64.8 MG PO ×3 (08:18→21:08)
[2024-04-06] MEDS: ESTRACE 1 MG PO (08:19)
[2024-04-06] MEDS: PROVERA 2.5 MG PO (08:19)
--- NOTE | 2024-04-06 11:35 | PTCARENOTE ---
Assumed care of pt from slat basket maker helper machine RN. Pt drowsy but arousable to verbal stimuli. AAOx3. NSR/ST on financial planning analyst. SpO2 98% on room air. VSS. Gordon removed. Pt due to void at 1703. Downgraded to tele. Report called to [facility] RN. PT/OT currently at
bedside. Pt HR up to 160s while ambulating with PT. Pt now in chair with alarm in place. HR now 100s while in chair. Awaiting transport for transfer to [facility].
--- NOTE | 2024-04-06 14:06 | W.PN.HOSP.TC ---
Today's Communication/Plan
-
transfer med/surg
compression stockings
replace K
PT/OT
remove caldera, TOV
Assessment / Plan
Assessment / Plan
1. Alcohol use disorder
Alcohol withdrawal - Improving
Alcohol intoxication - at admission
-Patient was brought in by family mother after was found down on the floor
-No reported telltale signs of any seizures
-CT head and CT neck did not show any acute abnormality
-Alcohol level of 125 admit
-Patient interested in alcohol cessation as has been sober for 20 years in the past.
-Started on Phenobabr protocol/maintain on MSAS-ativan
2. Anion gap metabolic acidosis - Resolved
Alcohol use related ketoacidosis
-Likely from alcohol use/starvation ketoacidosis, BHB > 9
-finish bicarb drip
-Encourage oral intake as possible
3. Anxiety disorder
-hold klonopin for now, getting ativan
4. Macrocytic anemia
-B12 normal
5. Acute transaminitis
-Suspected component with alcohol use related
-No previous liver/gallbladder imaging, ultrasound ordered
6. Fever episode
-covid/flu neg
-Could be related to alcohol withdrawal as well
-No other clear signs of ongoing infection, monitor off antibiotic
7. Hypokalemia
-replaced prn
8. Acute urinary retention
-Caldera catheter placed in ER,
-Discontinue Caldera catheter and TOV to be done
9. Orthostatic hypotension
-Patient systolic blood pressure was in 80s and heart rate 150+ with PT
-Lower extremity compression stockings ordered
DVT prophylaxis -Lovenox
Full code
Total time spent ; 52 mins
Anticipated Discharge: 24 - 48 hours
Subjective/Interval History
-
Date of Service: April 06, 2024
Mentation better today
Patient appetite has improved
Continues to have exertional tachycardia, asymptomatic
Reported blood pressure dropping
Objective Data
-
Labs:
Laboratory Results
04/06/24
03:49
WBC 4.2 L
Hgb 10.3 L
Hct 28.3 L
Plt Count 106 L
Sodium 133 L D
Potassium 2.8 L
Chloride 99
Carbon Dioxide 25
BUN 16
Creatinine 0.9
Glucose 94
Calcium 8.7
Vital Signs:
Vital Signs
Temp Pulse Resp BP Pulse Ox
97.8 F 89 18 119/80 100
04/06/24 12:30 04/06/24 12:30 04/06/24 12:30 04/06/24 12:30 04/06/24 12:30
I&O
04/05/24 04/06/24 04/07/24
06:59 06:59 06:59
Intake Total 2970 / 2970 1560 / 1560
Output Total 2100 / 2100 1400 / 1400 600 / 600
Balance 870 / 870 160 / 160 -600 / -600
Review of Systems
-
Respiratory: Reports No Symptoms
Cardiac: Reports No Symptoms
Abdomen/GI: Reports No Symptoms
Physical Exam
-
General: No Apparent Distress and Comfortable
HEENT: Negative Oxygen
Respiratory: Clear to Auscultation
Cardiac: Regular Rhythm and S1/S2; Negative Murmur or Rub
GI: Soft, Nontender and Nondistended
Musculoskeletal: No Edema
Neuro: Awake and Alert; Negative Oriented
Psych: Calm
[2024-04-06] MEDS: LOVENOX 40 MG SC (18:23)
[2024-04-06] MEDS: VITAMIN B1 100 MG PO (20:13)
[2024-04-06] MEDS: TYLENOL 650 MG PO (20:16)
[2024-04-06] MEDS: ZOFRAN 4 MG IV (22:18)
[2024-04-07 00:04] LABS: Blood Urea Nitrogen 17 mg/dl (7-17); Calcium 8.6 mg/dl (8.4-10.2); Carbon Dioxide 29 mmol/L (22-30); Chloride 98 mmol/L (98-107); Estimated Creatinine Clearance 53 ml/min; Glucose 91 mg/dl (70-99); Magnesium 1.6 mg/dl (1.6-2.3); Potassium 3.4 mmol/L (3.5-5.1); Sodium 126 mmol/L (135-145); eGFR > 60.00
[2024-04-07] MEDS: KCL 160 MEQ IV (00:53)
[2024-04-07] MEDS: MAGNESIUM SULFATE 102 GRAMS IV (03:24)
[2024-04-07 06:00] VITALS: BMI 27.0
[2024-04-07 07:20] VITALS: BP 141/85
[2024-04-07 08:09] LABS: Blood Urea Nitrogen 12 mg/dl (7-17); Calcium 8.3 mg/dl (8.4-10.2); Carbon Dioxide 26 mmol/L (22-30); Chloride 101 mmol/L (98-107); Estimated Creatinine Clearance 54 ml/min; Glucose 82 mg/dl (70-99); Potassium 3.1 mmol/L (3.5-5.1); Sodium 131 mmol/L (135-145); eGFR > 60.00
[2024-04-07] MEDS: LUMINAL 64.8 MG PO ×2 (08:09→15:16)
[2024-04-07] MEDS: VITAMIN B1 100 MG PO ×2 (08:09→20:17)
[2024-04-07] MEDS: ESTRACE 1 MG PO (08:09)
[2024-04-07] MEDS: PROVERA 2.5 MG PO (08:09)
[2024-04-07] MEDS: FOLVITE 1 MG PO (08:09)
[2024-04-07 09:08] LABS: Hematocrit 27.3 % (37.0-47.0); Hemoglobin 9.8 g/dL (12.0-16.0); Mean Corp Hgb Conc. 35.9 g/dL (33.0-37.0); Mean Corpuscular Hgb 38.7 pg (27.0-31.0); Mean Corpuscular Volume 107.9 fL (81.0-99.0); Mean Platelet Volume 11.4 fL (7.4-10.4); Platelet Count 100 10^3/uL (130-400); Red Blood Cell Count 2.53 10^6/uL (4.20-5.40); Red Cell Dist. Width 15.4 % (11.5-14.5); White Blood Cell Count 3.7 10^3/uL (4.8-10.8)
[2024-04-07 10:37] LABS: Urine Sodium 72 mmol/L (30-90)
[2024-04-07 12:48] LABS: Osmolality Urine 261 mOsm/kg (300-900)
[2024-04-07] MEDS: KLOR-CON 20 MEQ PO (15:14)
[2024-04-07] MEDS: TORADOL 15 MG IV (15:15)
--- NOTE | 2024-04-07 15:23 | W.PN.HOSP.TC ---
Today's Communication/Plan
-
repeat PT evaluation in morning
patient appropriate for snf rehab - patient prefers to go home
Assessment / Plan
Assessment / Plan
1. Alcohol use disorder
Alcohol withdrawal - Improving
Alcohol intoxication - at admission
-Patient was brought in by family mother after was found down on the floor
-No reported telltale signs of any seizures
-CT head and CT neck did not show any acute abnormality
-Alcohol level of 125 admit
-Patient interested in alcohol cessation as has been sober for 20 years in the past.
-Started on Phenobarb protocol/maintain on MSAS-ativan
2. Anion gap metabolic acidosis - Resolved
Alcohol use related ketoacidosis
-Likely from alcohol use/starvation ketoacidosis, BHB > 9
-finish bicarb drip
-Encourage oral intake as possible
3. Anxiety disorder
-hold klonopin for now, getting ativan
4. Macrocytic anemia
-B12 normal
5. Acute transaminitis
-Suspected component with alcohol use related
-No previous liver/gallbladder imaging, ultrasound ordered
6. Fever episode
-covid/flu neg
-Could be related to alcohol withdrawal as well
-No other clear signs of ongoing infection, monitor off antibiotic
7. Hypokalemia
-replaced prn
8. Acute urinary retention
-Gordon catheter placed in ER,
-Discontinue Gordon catheter and TOV to be done
9. Orthostatic hypotension
-Patient systolic blood pressure was in 80s and heart rate 150+ with PT
-Lower extremity compression stockings ordered
DVT prophylaxis -Lovenox
Full code
Anticipated Discharge: 24 - 48 hours
Subjective/Interval History
-
Date of Service: April 07, 2024
no issues overnight
having some weakness and pain in the thigh
Objective Data
-
Labs:
Laboratory Results
04/07/24
06:57
WBC 3.7 L
Hgb 9.8 L
Hct 27.3 L
Plt Count 100 L
Sodium 131 L
Potassium 3.1 L
Chloride 101
Carbon Dioxide 26
BUN 12
Creatinine 1.0
Glucose 82
Calcium 8.3 L
Vital Signs:
Vital Signs
Temp Pulse Resp BP Pulse Ox
97.6 F 95 16 141/85 99
04/07/24 07:20 04/07/24 07:20 04/07/24 07:20 04/07/24 07:20 04/07/24 07:20
I&O
04/06/24 04/07/24 04/08/24
06:59 06:59 06:59
Intake Total 1560 / 1560 622 / 622
Output Total 1400 / 1400 1100 / 1100 1025 / 1025
Balance 160 / 160 -478 / -478 -1025 / -1025
Review of Systems
-
Respiratory: Reports No Symptoms
Cardiac: Reports No Symptoms
Abdomen/GI: Reports No Symptoms
Physical Exam
-
General: No Apparent Distress and Comfortable
HEENT: Negative Oxygen
Respiratory: Clear to Auscultation
Cardiac: Regular Rhythm and S1/S2; Negative Murmur or Rub
GI: Soft, Nontender and Nondistended
Musculoskeletal: No Edema
Neuro: Awake and Alert; Negative Oriented
Psych: Calm
[2024-04-07 15:25] VITALS: BP 125/82
[2024-04-07] MEDS: LOVENOX 40 MG SC (17:20)
[2024-04-07] MEDS: LUMINAL 32.4 MG PO (22:14)
[2024-04-07] MEDS: ZOFRAN 4 MG IV (23:17)
[2024-04-07 23:48] VITALS: BP 136/80
[2024-04-08 05:02] VITALS: BMI 26.7
[2024-04-08 07:32] LABS: Hematocrit 28.6 % (37.0-47.0); Mean Corpuscular Hgb 38.8 pg (27.0-31.0); Mean Corpuscular Volume 110.9 fL (81.0-99.0); Platelet Count 127 10^3/uL (130-400); Red Blood Cell Count 2.58 10^6/uL (4.20-5.40); Red Cell Dist. Width 15.8 % (11.5-14.5); White Blood Cell Count 4.5 10^3/uL (4.8-10.8)
[2024-04-08 08:15] LABS: Blood Urea Nitrogen 11 mg/dl (7-17); Calcium 8.4 mg/dl (8.4-10.2); Carbon Dioxide 29 mmol/L (22-30); Chloride 101 mmol/L (98-107); Estimated Creatinine Clearance 59 ml/min; Glucose 81 mg/dl (70-99); Potassium 3.2 mmol/L (3.5-5.1); Sodium 130 mmol/L (135-145); eGFR > 60.00
[2024-04-08] MEDS: FOLVITE 1 MG PO (08:15)
[2024-04-08] MEDS: ESTRACE 1 MG PO (08:15)
[2024-04-08] MEDS: VITAMIN B1 100 MG PO ×2 (08:15→20:31)
[2024-04-08] MEDS: PROVERA 2.5 MG PO (08:15)
[2024-04-08] MEDS: LUMINAL 32.4 MG PO ×3 (08:16→21:10)
[2024-04-08 08:38] VITALS: BP 125/80
[2024-04-08 10:36] LABS: Magnesium 1.9 mg/dl (1.6-2.3)
[2024-04-08] MEDS: KCL 40 MEQ PO (12:04)
--- NOTE | 2024-04-08 12:26 | W.PN.HOSP.TC ---
Today's Communication/Plan
-
discharge planning
repeat PT evaluation
Assessment / Plan
Assessment / Plan
1. Alcohol use disorder
Alcohol withdrawal - Improving
Alcohol intoxication - at admission
-Patient was brought in by family mother after was found down on the floor
-No reported telltale signs of any seizures
-CT head and CT neck did not show any acute abnormality
-Alcohol level of 125 admit
-Patient interested in alcohol cessation as has been sober for 20 years in the past.
-Finishing course of phenobarbital taper.
2. Anion gap metabolic acidosis - Resolved
Alcohol use related ketoacidosis
-Likely from alcohol use/starvation ketoacidosis, BHB > 9
-finish bicarb drip
-Encourage oral intake as possible
3. Anxiety disorder
-hold klonopin for now, getting ativan
4. Macrocytic anemia
-B12 normal
5. Acute transaminitis
-Suspected component with alcohol use related
-No previous liver/gallbladder imaging, ultrasound ordered
6. Fever episode
-covid/flu neg
-Could be related to alcohol withdrawal as well
-No other clear signs of ongoing infection, monitor off antibiotic
7. Hypokalemia
-replaced prn
8. Acute urinary retention - resolved
-Gordon catheter placed in ER,
-Discontinue Gordon catheter and TOV to be done
9. Orthostatic hypotension - Improved
-Patient systolic blood pressure was in 80s and heart rate 150+ with PT
-Lower extremity compression stockings ordered
DVT prophylaxis -Lovenox
Full code
Repeat PT evaluation if patient appropriate for home health PT, can be discharged today.
Anticipated Discharge: Within 24 hours
Subjective/Interval History
-
Date of Service: April 08, 2024
Patient clinically better, able to stand up without assistance
Recovering from withdrawal without any issues
Objective Data
-
Labs:
Laboratory Results
04/08/24
07:06
WBC 4.5 L
Hgb 10.0 L
Hct 28.6 L
Plt Count 127 L D
Sodium 130 L
Potassium 3.2 L
Chloride 101
Carbon Dioxide 29
BUN 11
Creatinine 0.9
Glucose 81
Calcium 8.4
Vital Signs:
Vital Signs
Temp Pulse Resp BP Pulse Ox
98 F 88 18 125/80 99
04/08/24 08:38 04/08/24 08:38 04/08/24 08:38 04/08/24 08:38 04/08/24 08:38
I&O
04/07/24 04/08/24 04/09/24
06:59 06:59 06:59
Intake Total 622 / 622 480 / 480
Output Total 1100 / 1100 1725 / 1725
Balance -478 / -478 -1245 / -1245
Review of Systems
-
Respiratory: Reports No Symptoms
Cardiac: Reports No Symptoms
Abdomen/GI: Reports No Symptoms
Physical Exam
-
General: No Apparent Distress and Comfortable
HEENT: Negative Oxygen
Respiratory: Clear to Auscultation
Cardiac: Regular Rhythm and S1/S2; Negative Murmur or Rub
GI: Soft, Nontender and Nondistended
Musculoskeletal: No Edema
Neuro: Awake, Alert, Oriented and No Motor Deficits
Psych: Calm
--- NOTE | 2024-04-08 14:04 | W.DCSUMMARY ---
Discharge Summary
Discharge Data
Date of Admission: 04/03/24
Date of Discharge: 04/08/24
-
Pending Results: No
Hospital Course
Discharging Physician : Dr Dav Lynne
Disposition : To home
Primary care physician : Dr James Saenz
Principal Discharge diagnosis :
Alcohol withdrawal
Alcohol use disorder
Alcohol use related ketoacidosis
Acute transaminitis
Hypokalemia
Acute urinary retention
Orthostatic hypotension
Chronic Discharge diagnosis :
Ambulatory dysfunction/mechanical fall
Alcohol use disorder
Hospital Course :
Patient is a 58-year-old female with no mentioned past medical history was brought to ER after patient was found down by spouse. Patient reported to having problems with alcohol use disorder and has been sober for 20 years, recently with social
stressor patient has been started drinking again. Patient reported to be drinking quarter bottle of tequila to more on daily basis. Blood alcohol level in ER of 125. Patient was diagnosed to having alcohol intoxication and likely with history of
alcohol use disorder balance issues. Initial trauma workup with CT head/neck was negative. Patient was planned to be monitored in the hospital. On the same day of admission patient started to having episode of agitation/confusion and patient felt
to be developing alcohol withdrawal. Patient was started on phenobarbital protocol. Patient was placed in IMU for further monitoring. Over next 4 days patient slowly improved and at discharge patient was taken off of phenobarbital protocol.
Patient is planning to continue following with AA meetings after discharge.
Bedside alcohol withdrawal patient was noted to having anion gap metabolic acidosis from alcohol use related ketoacidosis. Patient was required bicarb drip support. With improvement of withdrawal and reinitiation of oral intake no further issues.
Patient continued to be have repeated episodes of hypokalemia and required replacement. Patient was discussed to increase potassium having diet at discharge. No diuretic use no other medication explaining recurrent hypokalemia. Decreased oral
intake likely explanation.
Patient was evaluated by physical therapy and initially deemed appropriate for longterm facility for rehab. Patient was noted to be orthostatic hypotension as well. Patient symptoms improved with improvement of withdrawal and reevaluation
patient was appropriate to be home level care with home physical therapy. Patient was discharged home with home visiting nurse services at this point.
Important imaging findings :
None
Procedure findings :
None
Discharge Plan
-
Patient Disposition: Home with Home Care
Discharge Diagnosis/Procedures: Alcohol withdrawal, hypokalemia, thrombocytopenia, trans-aminitis, hyponatremia
Condition: Fair
Diet: Regular
Activity: As tolerated
Driving Restrictions: No driving for 24 hours
Bathing Restrictions: OK to Shower
Referrals:
James Saenz MD [Family Provider] - in one week
Prescriptions:
New
folic acid 1 mg tablet
1 mg PO DAILY Qty: 30 0RF
thiamine HCl (vitamin B1) 100 mg capsule
100 mg PO DAILY Qty: 30 0RF
Continued
medroxyprogesterone 2.5 mg tablet
2.5 mg PO DAILY
clonazepam 1 mg tablet
1 mg PO DAILYPRN PRN (Reason: anxiety)
estradiol 1 mg tablet
1 mg PO DAILY
Discharge Orders:
Discharge Patient (As Directed); Ordered 04/08/24
Ordered By: Dav Lynne
Discharge Date and Time
Print Language: ROMANSH
--- NOTE | 2024-04-08 14:06 | CM ---
Addendum entered by Tamiko Felix RN 04/08/24 15:48:
Plan home with [facility] , and outpatient substance abuse resources.
Original Note:
Seen by PT today- per Bashir PT, patient's mobility has improved.
2 messages found on anKnockaTVing machine from from 04/06/24 complaining that he had been unable to speak with case consultant- his speech was very slurred, messages were rambling and hard to follow, sounded possibly intoxicated. He stated on
both messages he did not want a callback.
Met with patient who was preparing for discharge. The patient says she feels ready to go home today. She is agreeable to a referral to [facility] for SN/PT/OT. Her will provide transport home today.
Referral to [facility] (fax [phone]) in [facility].
Plan home today with [facility].
[2024-04-08 14:33] VITALS: BP 154/96
[2024-04-08 15:10] VITALS: BP 156/71
[2024-04-08 16:25] VITALS: BP 156/71
[2024-04-08] MEDS: LOVENOX 40 MG SC (17:08)
[2024-04-08] MEDS: ZOFRAN 4 MG IV (22:50)
[2024-04-08 23:29] VITALS: BP 145/78
[2024-04-09 06:52] VITALS: BP 146/87
[2024-04-09] MEDS: ESTRACE 1 MG PO (08:13)
[2024-04-09] MEDS: VITAMIN B1 100 MG PO (08:13)
[2024-04-09] MEDS: FOLVITE 1 MG PO (08:13)
[2024-04-09] MEDS: LUMINAL 32.4 MG PO (08:13)
[2024-04-09] MEDS: PROVERA 2.5 MG PO (08:13)
--- NOTE | 2024-04-09 12:08 | W.PN.HOSP.TC ---
Addendum entered and electronically signed by Rock Enrique MD 04/10/24 14:41:
ISHAAN-poa
Original Note:
Today's Communication/Plan
-
po intake improved significantly
await dispo
Assessment / Plan
Assessment / Plan
Alcohol use disorder
Alcohol withdrawal - Improving
Alcohol intoxication - at admission
-Patient was brought in by family mother after was found down on the floor
-No reported telltale signs of any seizures
-CT head and CT neck did not show any acute abnormality
-Alcohol level of 125 admit
-Patient interested in alcohol cessation as has been sober for 20 years in the past.
-Finishing course of phenobarbital taper while here and can stop on dc. .
anion gap metabolic acidosis - Resolved
Alcohol use related ketoacidosis
-Likely from alcohol use/starvation ketoacidosis, BHB > 9
-finish bicarb drip
-Encourage oral intake as possible
Anxiety disorder
-restart klonopin on dc.
Macrocytic anemia
-B12 normal
Acute transaminitis
-Suspected component with alcohol use related
-No previous liver/gallbladder imaging, ultrasound ordered
Fever episode
-covid/flu neg
-Could be related to alcohol withdrawal as well
-No other clear signs of ongoing infection, monitor off antibiotic
Hypokalemia
-replaced prn
Acute urinary retention - resolved
-Gordon catheter placed in ER,
-Discontinue Gordon catheter and TOV to be done
Orthostatic hypotension - Improved
-Patient systolic blood pressure was in 80s and heart rate 150+ with PT
-Lower extremity compression stockings ordered
-due to severe dehydration 2/2 alcohol abuse. BP stabilized.
DVT prophylaxis -Lovenox
Full code
Dispo-home. CM aware. Difficult social situation.
Anticipated Discharge: Today
Subjective/Interval History
-
Date of Service: April 09, 2024
sitting in chair
states tolerating diet
denies tremors
DC held overnight due to social situation
Objective Data
-
Vital Signs:
Vital Signs
Temp Pulse Resp BP Pulse Ox
97.8 F 119 18 146/87 98
04/09/24 06:52 04/09/24 06:52 04/09/24 06:52 04/09/24 06:52 04/09/24 06:52
I&O
04/08/24 04/09/24 04/10/24
06:59 06:59 06:59
Intake Total 480 / 480 1020 / 1020
Output Total 1725 / 1725
Balance -1245 / -1245 1020 / 1020
Physical Exam
-
General: No Apparent Distress, Comfortable and Appears Chronically Ill
HEENT: Negative Oxygen
Respiratory: Clear to Auscultation
Cardiac: Regular Rhythm and S1/S2; Negative Murmur or Rub
GI: Soft, Nontender and Nondistended
Musculoskeletal: No Edema
Neuro: Awake, Alert, Oriented and No Motor Deficits
Psych: Calm
--- NOTE | 2024-04-09 14:56 | CM ---
JAMES met with Sarah multiple times throughout the day today to work out a safe discharge plan. Sarah's left the house and called the RN to let him know that the door was left unlocked.
Pt reported that her 'drained the bank account' and believes that he has left. Unable to reach pt's to confirm.
Sarah will return home with [facility]; JAMES provided Sarah with [place] [employer] phone number to call if she cannot get into her home when she arrives.
W/C van transport arranged; to pay for w/c van due to financial situation.
Plan: Discharge to home with [facility] via w/c van transport.
[facility] fax [phone]
[2024-04-09 15:34] VITALS: BP 145/86
--- NOTE | 2024-04-10 09:26 | PN.CDI ---
CDI
- -
CDI:
Physician Documentation Request
Admit Date: 04/03/24 11:17
Dear Doctor Klaus,
Patient admitted for management of alcohol withdrawal/alcohol use related ketoacidosis.
Creatinine results :
Laboratory Tests
04/03/24 04/04/24 04/04/24
07:50 04:47 15:51
Creatinine 1.4 H 1.3 H 1.2 H
04/05/24 04/06/24 04/08/24
04:44 03:49 07:06
Creatinine 1.0 0.9 0.9
Could you please provide a diagnosis that supports the above lab abnormalities and additional evaluation/monitoring:
ISHAAN
Abnormal lab value clinically insignificant
Other
Criteria for ISHAAN*
1 Increase in serum creatinine by > or = to 0.3 mg/dL (> or = to 26.5 micromol/L) within 48 hours, OR
2 Increase in serum creatinine to > or = to 1.5 times baseline, which is known or presumed to have occurred within 7 days, OR
3 Urine volume < 0.5 nL/kg/hour for six hours
Use of terms such as suspected, likely, concern for, or probable (associated with a specific diagnosis that is being evaluated, monitored, or treated as if it exists) are acceptable and can be coded in the inpatient setting, when documented at the
time of discharge.
Thank you,
Roma Sahu RN, BSN
CDI Specialist
tiger text
Please use your independent medical judgment in providing your response.
== END 2024-04-09 17:10 | disposition home health service (06) | DRG 897 ==
LOC: 4 EAST ACU 11:17
PROVIDERS: Nurse Practitioner Family; Physician Assistant; ADMITTING PHYSICIAN Hospitalist; ATTENDING PHYSICIAN Hospitalist; EMERGENCY PHYSICIAN Emergency Medicine; FAMILY PHYSICIAN Family Medicine
DX: F10.129 Alcohol abuse with intoxication, unspecified (principal); E87.29 Other acidosis; E87.1 Hypo-osmolality and hyponatremia; N17.9 Acute kidney failure, unspecified; F10.139 Alcohol abuse with withdrawal, unspecified; Y90.6 Blood alcohol level of 120-199 mg/100 ml; F41.9 Anxiety disorder, unspecified; E87.6 Hypokalemia; I95.1 Orthostatic hypotension; D69.6 Thrombocytopenia, unspecified; D53.9 Nutritional anemia, unspecified; R33.8 Other retention of urine; Z11.52 Encounter for screening for COVID-19; Z79.899 Other long term (current) drug therapy
CPT/HCPCS: 70450; 71046; 72125; 76700; 80048; 80053; 81003; 81015; 82010; 82077; 82550; 82607; 82805; 82962; 83735; 83935; 84100; 84300; 84484; 85025; 85027; 87502; 87811; 93005; 96361; 96365; 96375; 97116; 97163; 97167; 97530; 97535; 99291; J7030

== ENCOUNTER 2024-07-18 00:56 | Emergency (ER) | payer OTHER, SELFPAY ==
[2024-07-18 01:00] VITALS: BP 125/69
[2024-07-18 01:12] VITALS: BMI 24.1
[2024-07-18 01:14] VITALS: BP 125/69
--- NOTE | 2024-07-18 01:21 | ED.GENMED ---
History of Present Illness
General
Chief Complaint: Alcohol Problem
Source: patient
Exam Limitations: none
Time Seen by Provider: 07/18/24 01:09
Nursing documentation reviewed up to this point in time: agreed with
History of Present Illness
History of Present Illness:
Pleasant 59-year-old female that presents to the emergency department intoxicated and suicidal. She states that she called 911 tonight because she wishes to get help for her alcoholism. She states that she has been drinking heavily for the last 6
months. She states that she 'wishes to '. She asked me to give her medicine to kill her. Denies any acute suicide attempt tonight. She does have a history of alcohol abuse, anxiety, and depression. She states that she is not on speaking
terms with her . Denies any other issues.
Review of Systems
Review of Systems
Allergies reviewed?: Yes
All Other Systems: ROS reviewed and negative except as documented in HPI and ROS
Constitutional: Reports no symptoms
EENT: Reports no symptoms
Respiratory: Reports no symptoms
Cardiac: Reports no symptoms
ABD/GI: Reports no symptoms
: Reports no symptoms
Musculoskeletal: Reports no symptoms
Skin: Reports no symptoms
Neurological: Reports no symptoms
Endocrine: Reports no symptoms
Hematologic/Lymphatic: Reports no symptoms
Psychiatric: Reports depression, anxiety and suicidal
Phy Exam
Physical Exam
Physical Exam:
Physical Exam
Vital signs and allergy list reviewed and agreed with.
GENERAL: Alert , in minimal apparent distress
EYE: pupils equal, EOMI, anicteric
NECK: Supple, no significant adenopathy. No masses. Trachea midline
ENT: Oropharynx is clear, mmm.
CARDIAC: Regular rate and rhythm . No M/R/G
LUNGS: Clear breath sounds bilaterally, no acute respiratory distress, no wheezes/rales/rhonchi
ABDOMEN: Soft, without focal tenderness, no r/g, no cvat. Normal BSx4q
NEUROLOGICAL: Alert and oriented, slightly intoxicated appearing but ANO x 3
SKIN: Warm and dry, skin intact.
MUSCULOSKELETAL: No edema, well perfused. Moves all 4 extremities
PSYCH: Normal and appropriate interaction.
Scores
Withdrawal Assessment of Alcohol
Withdrawal Assessment Completed?: No
Course
Orders/Labs/Results
Orders:
Orders
07/18/24 01:11
1:1 Observation - Suicide/ Violent Behavior As Directed
Crisis Consult Urgent
Reason for Consult: pt states she feels suicidal, and is abusing alcohol, wants rehab
07/18/24 01:18
Alcohol Urgent
Complete Blood Count/With Diff Urgent
Comprehensive Metabolic Panel Urgent
Salicylate Urgent
07/18/24 01:23
Add On- LAB Urgent
Tests Added?: salicylate level
Electrocardiogram (*1) Urgent
Reason for Study: QTc Monitoring
EKG- Treatment ONCE
07/18/24 01:34
Lorazepam [Ativan] 2 mg IV NOW STA
07/18/24 02:00
0.9% Sodium Chloride 1000 ml [Nss] 1,000 ml Mvi, Adult [Multivitamin] 10 ml Thiamine Injection 100 mg IV 250 mls/hr
07/18/24 02:27
Consult Psychiatry [PSYCHIATRY CONSULT] Urgent
Consulting Provider: Reena Negrete
Was physician already notified: No
Reason for consult: pt verbalized suicidal ideations; abuses alcohol; now does not want help
07/18/24 02:29
Consult Notification Routine
Specialty to Notify: Psychiatry
Date consulting provider notified: 07/18/24
Time consulting provider notified: 07:54
Notified:: Provider
07/18/24 03:06
Consult Psychiatry [PSYCHIATRY CONSULT] Urgent
Consulting Provider: Aura Multani
Was physician already notified: No
Reason for consult: possible si
07/18/24 03:07
Consult Notification Routine
Specialty to Notify: Psychiatry
07/18/24 05:14
Urinalysis Reflex To Culture Urgent
Date Specimen was Collected: 07/18/24
Time Specimen was Collected: 01:16
Urine Drug Abuse Screen Urgent
Date Specimen was Collected: 07/18/24
Time Specimen was Collected: 01:16
Urine Microscopic Reflex Cult Urgent
07/18/24 Breakfast
Regular
At Your Request: Full Participation
Does patient need a safe tray?: Yes
Comment: Pt is in ED 28 POD 2
07/18/24 08:21
Lorazepam [Ativan] 2 mg IV NOW STA
Abnormal Lab Results
07/18/24 07/18/24
01:18 05:14
WBC 4.2 L 10^3/uL
(4.8-10.8)
RBC 4.19 L 10^6/uL
(4.20-5.40)
MCH 32.2 H pg
(27.0-31.0)
RDW 15.8 H %
(11.5-14.5)
Neutrophils % 41.6 L %
(42.2-75.2)
Monocytes % 12.1 H %
(1.7-9.3)
Sodium 146 H mmol/L
(135-145)
Chloride 110 H mmol/L
(98-107)
Carbon Dioxide 17 L mmol/L
(22-30)
AST 48 H U/L
(14-36)
Urine Ketones 2+ A
(Negative)
Ur Occult Blood Reflex 2+ A
(Negative)
Urine Bacteria (Reflex) Few A
(Negative)
Urine Albumin (Reflex) 2+ A
(Neg - Trace)
Salicylates < 1.0 L mg/dl
(2.0-20.0)
U Marijuana (THC) Screen Positive H
(Negative)
07/18/24 01:18
07/18/24 01:18
Vital Signs
Initial and Last Documented VS:
Initial Vital Signs
Temp Pulse Resp BP Pulse Ox
98.1 F 78 16 125/69 98
07/18/24 01:00 07/18/24 01:00 07/18/24 01:00 07/18/24 01:00 07/18/24 01:00
Last Documented Vital Signs
Temp Pulse Resp BP Pulse Ox
98.6 F 98 18 103/62 94
07/18/24 03:58 07/18/24 09:00 07/18/24 09:00 07/18/24 03:58 07/18/24 03:58
*Pulse Oximetry
Patient hypoxic: no
*Critical Care Note
Total Time (30-74mins, 75-104mins- exclusive of procedures): Not Applicable
ED Attending Note
-
Portions of this chart may have been created with voice recognition software.� Occasional wrong word or��sound alike� substitutions may have occurred due to the inherent limitations of voice recognition software.
Discharge Plan
Departure
Patient Disposition: Home (Routine Discharge)
Patient with high blood pressure during this ER visit?: Yes
Discharge Problem:
Alcohol use, unspecified with other alcohol-induced disorder
Prescriptions:
No Action
medroxyprogesterone 2.5 mg tablet
2.5 mg PO DAILY
estradiol 1 mg tablet
1 mg PO DAILY
ondansetron HCl [Zofran] 4 mg Tablet
4 mg PO Q6HPRN PRN (Reason: nausea)
rizatriptan 10 mg Tablet
0 mg PO .COMPLEX
Rx Instructions:
take 1 tab at onset of headache; if no relief may repeat 1 tab after at least 2 hrs; max = 3 tabs/24 hr
mirtazapine 7.5 mg Tablet
15 - 22.5 mg PO HS
duloxetine [Cymbalta] 60 mg Capsule,Delayed Release(Dr/Ec)
60 mg PO DAILY
Referrals:
UNKNOWN - PT DOES,NOT KNOW [Family Provider] -
Interventions
Interventions:
*Risk Screen - Suicide Last Done: 07/18/24 01:00
*General Assessment Last Done: 07/18/24 01:00
*Neglect/Abuse Screening Last Done: 07/18/24 01:00
*ED- Fall Risk Assessment Last Done: 07/18/24 01:00
*ED COVID-19 Vaccine History Last Done: 07/18/24 01:00
*Nursing Disposition Last Done: 07/18/24 10:50
ED- Neurological Assessment Last Done: 07/18/24 02:01
ED-Psychological Assessment Last Done: 07/18/24 02:01
Discharge Date and Time
Discharge Date/Time: 07/18/24 10:50
Print Language: AZERI
[2024-07-18 01:27] LABS: % Basophils 1.2 % (0-2); % Eosinophils 1.7 % (0-6); % Immature Granulocytes 0.2 % (0-0.5); % Lymphocytes 43.2 % (20.5-51.1); % Monocytes 12.1 % (1.7-9.3); % Neutrophils 41.6 % (42.2-75.2); Absolute Basophils 0.1 10^3/uL (0-0.2); Absolute Eosinophils 0.1 10^3/uL (0-0.7); Absolute Lymphocytes 1.8 10^3/uL (1.2-3.4); Absolute Monocytes 0.5 10^3/uL (0.1-0.6); Absolute Neutrophils 1.8 10^3/uL (1.4-6.5); Hematocrit 37.9 % (37.0-47.0); Hemoglobin 13.5 g/dL (12.0-16.0); Mean Corp Hgb Conc. 35.6 g/dL (33.0-37.0); Mean Corpuscular Hgb 32.2 pg (27.0-31.0); Mean Corpuscular Volume 90.5 fL (81.0-99.0); Mean Platelet Volume 10.4 fL (7.4-10.4); Nucleated Red Blood Cells % 0 %; Platelet Count 146 10^3/uL (130-400); Red Blood Cell Count 4.19 10^6/uL (4.20-5.40); Red Cell Dist. Width 15.8 % (11.5-14.5); White Blood Cell Count 4.2 10^3/uL (4.8-10.8)
[2024-07-18 01:40] LABS: ALT (SGPT) 30 U/L (0-35); AST (SGOT) 48 U/L (14-36); Albumin 4.8 g/dl (3.5-5.0); Alkaline Phosphatase 81 U/L (38-126); Blood Urea Nitrogen 13 mg/dl (7-17); Calcium 9.8 mg/dl (8.4-10.2); Carbon Dioxide 17 mmol/L (22-30); Chloride 110 mmol/L (98-107); Estimated Creatinine Clearance 79 ml/min; Glucose 84 mg/dl (70-99); Potassium 3.8 mmol/L (3.5-5.1); Salicylate < 1.0 mg/dl (2.0-20.0); Sodium 146 mmol/L (135-145); Total Bilirubin 0.4 mg/dl (0.2-1.3); Total Protein 7.6 g/dl (6.3-8.2); eGFR > 60.00
[2024-07-18] MEDS: ATIVAN 2 MG IV ×2 (01:49→08:26)
[2024-07-18 01:50] LABS: Alcohol 383 mg/dl
[2024-07-18] MEDS: MULTIVITAMIN 1011 ML IV (01:50)
[2024-07-18] MEDS: MULTIVITAMIN 1011 MG IV (01:50)
[2024-07-18 02:17] VITALS: BP 97/84
[2024-07-18 03:00] VITALS: BP 107/74
[2024-07-18 03:53] VITALS: BP 103/62
[2024-07-18 03:58] VITALS: BP 103/62
[2024-07-18 05:40] LABS: Urine Albumin 2+ (Neg - Trace); Urine Bilirubin Negative (Negative); Urine Character Clear (Clear); Urine Color Amber; Urine Glucose Negative (Negative); Urine Ketone 2+ (Negative); Urine Leukocyte Negative (Negative); Urine Nitrite Negative (Negative); Urine Occult Blood 2+ (Negative); Urine Specific Gravity 1.025 (<1.030); Urine Urobilinogen Negative (Neg - 1+)
[2024-07-18 05:50] LABS: Amphetamines Negative (Negative); Barbiturates Negative (Negative); Benzodiazepines Negative (Negative); Buprenorphine Negative (Negative); Cocaine Negative (Negative); Marijuana Positive (Negative); Methadone Negative (Negative); Methamphetamines Negative (Negative); Opiates Negative (Negative); Phencyclidine Negative (Negative); Tricyclic Antidepressants Negative (Negative); Urine Squamous Cell >30 /LPF (Few)
[2024-07-18 05:51] LABS: Urine Bacteria Few (Negative); Urine Red Blood Cell 0-2 /HPF (0-2); Urine White Cell 0-2 /HPF (0-5)
== END 2024-07-18 10:50 | disposition home or self-care (01) ==
LOC: EMR 00:56
PROVIDERS: CONSULT PHYSICIAN Psychiatry & Neurology Psychiatry; EMERGENCY PHYSICIAN Student in an Organized Health Care Education/Training Program
DX: R45.851 Suicidal ideations (principal); F10.229 Alcohol dependence with intoxication, unspecified; F32.A Depression, unspecified; F41.9 Anxiety disorder, unspecified; G43.909 Migraine, unspecified, not intractable, without status migrainosus
CPT/HCPCS: 99285; 96365; 96366 ×3; 96376 ×2; 80053; 80179; 80306; 81003; 81015; 82077; 85025; 93005

== ENCOUNTER 2024-07-19 12:17 | Emergency (ER) | payer OTHER, SELFPAY ==
[2024-07-19 12:28] VITALS: BP 138/103
--- NOTE | 2024-07-19 14:49 | ED.GENMED ---
History of Present Illness
General
Chief Complaint: Alcohol Problem
Time Seen by Provider: 07/19/24 12:45
History of Present Illness
History of Present Illness:
59-year-old female with history of alcohol abuse presenting to the emergency department for acute intoxication. Patient arrives by EMS, ambulance called for intoxication. Patient just been discharged from this facility this morning for
intoxication and mental health. On arrival, patient admits to drinking alcohol. Initially in triage, had reported some suicidal ideations, presently denying any suicidal ideations or intention. Patient limited story given her intoxication. No
additional history obtained at this time.
Phy Exam
Physical Exam
Physical Exam:
General: Disheveled and unkept
HEENT: protecting airway
Neck: appears supple
CV: Normal heart rate
Resp: No accessory muscle use, no increased work of breathing
Abd: Soft and non-distended, no tenderness to palpation, normal bowel sounds
Extremities: No deformities, no swelling, no erythema
Neuro: alert, no focal neurologic deficit
: deferred
Rectal: deferred
Psych: Normal affect
Skin: Intact
Scores
Withdrawal Assessment of Alcohol
Withdrawal Assessment Completed?: Not applicable
Course
Orders/Labs/Results
Orders:
Orders
07/19/24 12:36
1:1 Observation - Suicide/ Violent Behavior As Directed
07/19/24 12:58
Crisis Consult Urgent
Reason for Consult: SI
Vital Signs
Initial and Last Documented VS:
Initial Vital Signs
Temp Pulse Resp BP Pulse Ox
97.4 F 64 20 138/103 94
07/19/24 12:28 07/19/24 12:28 07/19/24 12:28 07/19/24 12:28 07/19/24 12:28
Last Documented Vital Signs
Temp Pulse Resp BP Pulse Ox
97.4 F 64 20 138/103 94
07/19/24 12:28 07/19/24 12:28 07/19/24 12:28 07/19/24 12:28 07/19/24 12:28
MDM/Problems Addressed
MDM/Problems Addressed:
59-year-old female with history of alcohol abuse presenting for intoxication and mental health. Vital signs on arrival are significant for mild hypertension.
On exam patient is in no acute distress, nontoxic. Patient does appear intoxicated, admits to EtOH. Patient initially had some reported some SI, presently denying my assessment. Crisis consult placed. Patient is declining rehabilitation
services. She initially agreed to detox and rehab, however explained that she does not want to go to another facility. No indication for 302, suspect ongoing depression and depressive symptoms, without present threat to self or others. Will
continue to monitor until clinically sober for discharge.
15:20 - Patient agreed to let us to call her . No answer
*Critical Care Note
Total Time (30-74mins, 75-104mins- exclusive of procedures): Not Applicable
ED Attending Note
-
Portions of this chart may have been created with voice recognition software.� Occasional wrong word or��sound alike� substitutions may have occurred due to the inherent limitations of voice recognition software.
Discharge Plan
Departure
Patient with high blood pressure during this ER visit?: No
Condition: Good
Discharge Problem:
Alcohol use, unspecified with other alcohol-induced disorder
Instructions: Alcohol Use Disorder (DC)
Prescriptions:
No Action
medroxyprogesterone 2.5 mg tablet
2.5 mg PO DAILY
estradiol 1 mg tablet
1 mg PO DAILY
Referrals:
UNKNOWN - PT DOES,NOT KNOW [Family Provider] -
Activity Restrictions/Additional Instructions:
You were seen in the emergency department for intoxication
We suspect your symptoms are from alcohol. You were seen by the crisis team, however declined rehabilitation services.
Please follow-up closely with your primary care physician.
Return to the emergency department for any worsening of your symptoms or any thoughts of wanting to hurt yourself or others, or any development of chest pain, difficulty breathing, abdominal pain with persistent vomiting and inability to tolerate
food or liquid by mouth (concern for dehydration), weakness, headache or confusion, fever greater than 100.4, or any additional symptoms that are concerning to you.
Thank you for choosing [facility].
Interventions
Interventions:
*Risk Screen - Suicide Last Done: 07/19/24 12:35
ED- Neurological Assessment Last Done: 07/19/24 12:57
ED-Psychological Assessment Last Done: 07/19/24 12:57
Discharge Date and Time
Print Language: HUNGARIAN
--- NOTE | 2024-07-19 15:56 | ED.GENMED ---
History of Present Illness
<Anna Funez DO - Last Filed: 07/19/24 16:04>
General
Chief Complaint: Alcohol Problem
Time Seen by Provider: 07/19/24 12:45
History of Present Illness
History of Present Illness:
59-year-old female with history of alcohol abuse presenting to the emergency department for concern of alcohol intoxication. Ambulance called by . Patient had just been discharged from this facility this morning for similar symptoms, as
well as mental health, SI. Patient had declined services at that time. Patient admits to drinking. Limited historian given her intoxication. Initially reporting some suicidal ideation without intention or plan. No additional history obtained at
this time
Phy Exam
<Anna Funez DO - Last Filed: 07/19/24 16:04>
Physical Exam
Physical Exam:
General: Unkept and disheveled
Head: No signs of trauma
HEENT: protecting airway
Neck: appears supple
CV: Normal heart rate
Resp: No accessory muscle use, no increased work of breathing
Abd: No distention
Extremities: No deformities, no swelling
Neuro: alert, no focal neurologic deficit
: deferred
Rectal: deferred
Psych: Normal affect
Skin: Intact
Scores
<Franki Austin MD - Last Filed: 07/19/24 21:08>
Withdrawal Assessment of Alcohol
Withdrawal Assessment Completed?: Yes
Nausea and Vomiting: Mild nausea with no vomiting
Tactile Disturbances: None
Tremor: Moderate, with patient's arms extended
Auditory Disturbances: Not present
Paroxysmal Sweats: No sweat visible
Visual Disturbances: Not present
Anxiety: Moderately anxious, or guarded, so anxiety is inferred
Headache, Fullness in Head: Not present
Agitation: Moderately fidgety and restless
Orientation and clouding of sensorium: Oriented and can do serial additions
Total CIWA Score: 13
Alcohol Withdrawal Medication Recommendation: Equal to MSAS Score 5-7. Lorazepam 1mg IV or PO NOW & re-assess q2hrs
Course
<Anna Funez DO - Last Filed: 07/19/24 16:04>
Orders/Labs/Results
Orders:
Orders
07/19/24 12:36
1:1 Observation - Suicide/ Violent Behavior As Directed
07/19/24 12:58
Crisis Consult Urgent
Reason for Consult: SI
07/19/24 17:06
Lorazepam [Ativan] 2 mg PO NOW STA
07/19/24 20:29
Lorazepam [Ativan] 1 mg PO NOW STA
Vital Signs
Initial and Last Documented VS:
Initial Vital Signs
Temp Pulse Resp BP Pulse Ox
97.4 F 64 20 138/103 94
07/19/24 12:28 07/19/24 12:28 07/19/24 12:28 07/19/24 12:28 07/19/24 12:28
Last Documented Vital Signs
Temp Pulse Resp BP Pulse Ox
98.2 F 98 18 132/82 99
07/19/24 20:41 07/19/24 20:41 07/19/24 18:36 07/19/24 19:52 07/19/24 20:44
<Franki Austin MD - Last Filed: 07/19/24 21:08>
Orders/Labs/Results
Orders:
Orders
07/19/24 12:36
1:1 Observation - Suicide/ Violent Behavior As Directed
07/19/24 12:58
Crisis Consult Urgent
Reason for Consult: SI
07/19/24 17:06
Lorazepam [Ativan] 2 mg PO NOW STA
07/19/24 20:29
Lorazepam [Ativan] 1 mg PO NOW STA
Vital Signs
Initial and Last Documented VS:
Initial Vital Signs
Temp Pulse Resp BP Pulse Ox
97.4 F 64 20 138/103 94
07/19/24 12:28 07/19/24 12:28 07/19/24 12:28 07/19/24 12:28 07/19/24 12:28
Last Documented Vital Signs
Temp Pulse Resp BP Pulse Ox
98.2 F 98 18 132/82 99
07/19/24 20:41 07/19/24 20:41 07/19/24 18:36 07/19/24 19:52 07/19/24 20:44
<Anna Funez DO - Last Filed: 07/19/24 16:04>
MDM/Problems Addressed
MDM/Problems Addressed:
59-year-old female presenting to the emergency department for alcohol intoxication. Vital signs on arrival significant for mild hypertension.
On exam patient is resting comfortably, no acute distress. She does seem somewhat confused, however is able to answer questions appropriately. Initially reporting some SI, however on my assessment denying any SI or present intention for self-harm.
Crisis consult placed, however patient is declining any rehabilitation services or detox. Does not presently appear to be a threat to herself or others, without present indication for 302. Will continue to closely monitor for clinical sobriety.
15:00 - Patient agreed to let us call her to pick her up, however no answer
16:00 - Patient remained stable, showering. Ambulating steadily. Feel stable for discharge. Return precautions discussed
<Anna Funez DO - Last Filed: 07/19/24 16:04>
*Critical Care Note
Total Time (30-74mins, 75-104mins- exclusive of procedures): Not Applicable
<Franki Austin MD - Last Filed: 07/19/24 21:08>
Update Note
Update Note:
1705.... Patient feels like her withdrawal symptoms are getting worse and she feels like she needs to drink. However she also has no ride home. I talked to her at length. I stressed to her for her to get help for her alcohol she really would need
to go inpatient. She is understanding of this and accepts this. We will give her a dose of p.o. Ativan now recontact [facility] to hopefully get her placed for detox and alcohol withdrawal issues
1829... Patient has remained medically stable. She is willing to get help. She is nontoxic and appears more comfortable. She is medically cleared
ED Attending Note
<Anna Funez, DO - Last Filed: 07/19/24 16:04>
-
Portions of this chart may have been created with voice recognition software.� Occasional wrong word or��sound alike� substitutions may have occurred due to the inherent limitations of voice recognition software.
Discharge Plan
Departure
Patient Disposition: Other
Date of Disposition: 07/19/24
Time of Disposition: 18:31
Patient with high blood pressure during this ER visit?: No
Condition: Good
Discharge Problem:
Alcohol use, unspecified with other alcohol-induced disorder
Instructions: Alcohol Use Disorder (DC)
Prescriptions:
No Action
medroxyprogesterone 2.5 mg tablet
2.5 mg PO DAILY
estradiol 1 mg tablet
1 mg PO DAILY
ondansetron HCl [Zofran] 4 mg Tablet
4 mg PO Q6HPRN PRN (Reason: nausea)
rizatriptan 10 mg Tablet
0 mg PO .COMPLEX
Rx Instructions:
take 1 tab at onset of headache; if no relief may repeat 1 tab after at least 2 hrs; max = 3 tabs/24 hr
mirtazapine 7.5 mg Tablet
15 - 22.5 mg PO HS
duloxetine [Cymbalta] 60 mg Capsule,Delayed Release(Dr/Ec)
60 mg PO DAILY
Referrals:
UNKNOWN - PT DOES,NOT KNOW [Family Provider] -
Activity Restrictions/Additional Instructions:
You were seen in the emergency department for intoxication... You have made the right decision to get rehabilitation. You are medically cleared for rehabilitation
We suspect your symptoms are from alcohol.
Please follow-up closely with your primary care physician.
Return to the emergency department for any worsening of your symptoms or any thoughts of wanting to hurt yourself or others, or any development of chest pain, difficulty breathing, abdominal pain with persistent vomiting and inability to tolerate
food or liquid by mouth (concern for dehydration), weakness, headache or confusion, fever greater than 100.4, or any additional symptoms that are concerning to you.
Thank you for choosing [facility].
Interventions
Interventions:
*Risk Screen - Suicide Last Done: 07/19/24 12:35
*General Assessment Last Done: 07/19/24 20:42
*ED COVID-19 Vaccine History Last Done: 07/19/24 20:42
*Nursing Disposition Last Done: 07/19/24 20:44
ED- Neurological Assessment Last Done: 07/19/24 12:57
ED-Psychological Assessment Last Done: 07/19/24 12:57
Discharge Date and Time
Discharge Date/Time: 07/19/24 20:56
Print Language: ARMENIAN
[2024-07-19] MEDS: ATIVAN 2 MG PO (17:12)
[2024-07-19 17:16] VITALS: BP 116/84
[2024-07-19 18:36] VITALS: BP 129/70
[2024-07-19 19:52] VITALS: BP 132/82
[2024-07-19] MEDS: ATIVAN 1 MG PO (20:38)
== END 2024-07-19 20:56 | disposition other institution (70) ==
LOC: EMR 12:17
PROVIDERS: EMERGENCY PHYSICIAN Student in an Organized Health Care Education/Training Program
DX: F10.129 Alcohol abuse with intoxication, unspecified (principal); R45.851 Suicidal ideations; F10.188 Alcohol abuse with other alcohol-induced disorder; I10 Essential (primary) hypertension
CPT/HCPCS: 99285